=== PATIENT | female | born 1930 | race Hispanic/Latino ===

== ENCOUNTER 2017-01-17 18:34 | Inpatient (IN) | payer MEDICARE, BC ==
[2017-01-17 18:34] VITALS: BMI 18.0
[2017-01-17] MEDS ORDERED: Sodium Chloride 0.9% 500 ML IV ONE (19:51)
[2017-01-17] MEDS ORDERED: Sodium Chloride 0.9% 1,000 ML ONE (19:59)
[2017-01-17 20:05] LABS: BASO % 0.4 % (0.0-2.0); EOS % 0.3 % (0.0-4.0); HEMATOCRIT 43.1 % (34.0-47.0); LYMPH # 1.3 K/uL (1.0-4.3); LYMPH % 16.2 % (20.0-40.0); MEAN CORPUSCULAR HEMOGLOBIN 29.2 pg (27.0-31.0); MEAN CORPUSCULAR HGB CONC 33.1 g/dL (33.0-37.0); MEAN PLATELET VOLUME 7.4 fL (7.2-11.7); MONO # 0.9 K/uL (0.0-0.8); MONO % 11.8 % (0.0-10.0); NRBC % 0.1 % (0.0-2.0); RED CELL DISTRIBUTION WIDTH 16.4 % (11.5-14.5); WHITE BLOOD COUNT 7.9 K/uL (4.8-10.8)
[2017-01-17 20:20] LABS: CHLORIDE 84 mmol/L (98-107); POTASSIUM 3.5 mmol/L (3.6-5.2); SODIUM 124 mmol/L (132-148)
[2017-01-17 20:22] LABS: BILIRUBIN,TOTAL 0.8 mg/dL (0.2-1.3); CARBON DIOXIDE 25 mmol/L (22-30); GFR AFRICAN-AMERICAN > 60
[2017-01-17 20:23] LABS: ALB/GLOB RATIO 1.3 (1.0-2.1); ALKALINE PHOSPHATASE 71 U/L (38-126); ALT/SGPT 20 U/L (9-52); AST/SGOT 32 U/L (14-36); BLOOD UREA NITROGEN 20 mg/dL (7-17); CALCIUM 8.9 mg/dl (8.6-10.4); GLUCOSE,RANDOM 81 mg/dL (65-105); TOTAL PROTEIN 6.9 g/dL (6.3-8.3)
[2017-01-17] MEDS ORDERED: Azithromycin 500 MG in Sodium Chloride 0.9% 250 ML IV STA (21:56)
[2017-01-17] MEDS ORDERED: cefTRIAXone IV 1 gm in Dextros 50 ML IV ONE (21:56)
[2017-01-17] MEDS ORDERED: cefTRIAXone IV 1 gm in Dextros 50 ML IVPB ONE (22:06)
[2017-01-17] MEDS ORDERED: Iodixanol 320 MG/ML 100 ML BOTTLE IV ONE (22:06)
[2017-01-17] MEDS ORDERED: Sodium Chloride 0.9% 1,000 ML IV ONE (22:12)
[2017-01-17] MEDS ORDERED: Azithromycin 500mg/250ML NS 500 MG/250 ML BAG IVPB ONE (22:57)
--- NOTE | 2017-01-17 23:04 | CT ---
EXAM: CT Abdomen and Pelvis With Intravenous Contrast CLINICAL HISTORY: 86 years old, female; Pain; Abdominal pain; Localized; Lower; Additional info: Lower abd, (ap as a child) TECHNIQUE: Axial computed tomography images of the abdomen and pelvis with intravenous contrast. This CT exam was performed using one or more of the following dose reduction techniques: automated exposure control, adjustment of the mA and/or kV according to patient size, and/or use of iterative reconstruction technique. Coronal and sagittal reformatted images were created and reviewed. CONTRAST: 100 mL of [id number] administered intravenously. COMPARISON: CR - HIP [place] W/WO PELVIS 3-4 VIEWS 10/21/2015 1:59:54 AM FINDINGS: Lower thorax: There is minimal bibasilar atelectasis. Visualized thoracic aorta is extensively tortuous without aneurysm. There is coronary artery calcification. The visualized heart does not appear enlarged. ABDOMEN: Liver: There is a diffuse decrease in hepatic parenchymal density, consistent with fatty infiltration. There are no focal liver lesions present. Gallbladder and bile ducts: There are probable small gallstones present. No ductal dilation. Pancreas: The pancreas is somewhat atrophic. The pancreatic duct is visible however remains within top normal limits of size. Spleen: The spleen is diminutive. Adrenals: The adrenal glands are normal. Kidneys and ureters: There is no evidence of hydronephrosis. Stomach and bowel: Stomach is decompressed. There is no evidence of intestinal obstruction. No mucosal thickening. Appendix: No findings to suggest acute appendicitis. PELVIS: Bladder: Bladder is decompressed. Reproductive: The uterus is atrophic or absent. ABDOMEN and PELVIS: Intraperitoneal space: There is no evidence of free intraperitoneal fluid. There is no free intraperitoneal air. Bones/joints: There is an intramedullary areli and dynamic screw combination within the visualized right proximal femur. There is a left hip prosthesis which appears in near-anatomic position. There is severe diffuse osteopenia present. Multilevel severe compression deformities are present, age indeterminate. There are post kyphoplasty changes in L1, L2 and L3. No dislocation. Soft tissues: Unremarkable. Vasculature: There is calcification of the aortic root. Abdominal aorta is extensively tortuous and demonstrates moderate to severe atherosclerosis and mild distal ectasia without stella aneurysm. An IVC filter is present infrarenally. Lymph nodes: Unremarkable. No enlarged lymph nodes. Other findings: Subcentimeter hypodensity is present in the right midpole, too small to adequately characterize. There is mild anasarca. IMPRESSION: 1. No definite acute findings. 2. Additional incidental and/or chronic findings as described.
--- NOTE | 2017-01-17 23:10 | C.PDOC ---
History Of Present Illness A 86 y/o female present to the ER c/o lower abdominal pain 3 days. Pt notes association of poor appetite, poor fluid intake, and poor bowel movements. Pt notes taking laxative to void bowel with no sign improvement to pain. Pt denies fever, chills, nausea, vomiting, or any other complaints. Time Seen by Provider: 01/17/17 19:25 Chief Complaint (Nursing): Abdominal Pain History Per: Patient History/Exam Limitations: no limitations Onset/Duration Of Symptoms: Days Current Symptoms Are (Timing): Still Present Severity: Mild Location Of Pain/Discomfort: RLQ, LLQ Associated Symptoms: denies: Nausea, Vomiting Recent travel outside of the [place]: No Additional History Per: Patient Past Medical History Reviewed: Historical Data, Nursing Documentation, Vital Signs Vital Signs: Last Vital Signs Temp 97.6 F 01/17/17 18:48 Pulse 79 01/17/17 23:28 Resp 20 01/17/17 23:28 BP 121/89 01/17/17 23:28 Pulse Ox 95 01/18/17 00:13 - Medical History PMH: Anemia, Arthritis, Back Problems, Depression, Fractures (hip, spine), HTN, Hypercholesterolemia, Osteoporosis, TIA Surgical History: Appendectomy, Tonsillectomy - [facility] Procedures ENDOSC POLYPECTOMY OF LG INTEST (11/10/97) ESOPHAGOGASTRODUODENOSCOPY [EGD] W/CLOSED BIOPSY (11/10/97) INJECT/INFUSE NEC (08/19/06) NEBULIZER THERAPY (06/19/04) OPEN REDUC-INT FIX FEMUR (03/19/13) PACKED CELL TRANSFUSION (03/19/13) Family History: States: Unknown Family Hx - Social History Hx Tobacco Use: No Hx Alcohol Use: No Hx Substance Use: No - Immunization History Hx Tetanus Toxoid Vaccination: Yes Hx Influenza Vaccination: Yes Hx Pneumococcal Vaccination: Yes Review Of Systems Except As Marked, All Systems Reviewed And Found Negative. Constitutional: Negative for: Fever, Chills Gastrointestinal: Positive for: Abdominal Pain (Lower abdominal pain). Negative for: Nausea, Vomiting Physical Exam - Physical Exam Appears: Non-toxic, No Acute Distress Skin: Warm, Dry, Pale Head: Other (bitemporal wasting) Eye(s): bilateral: Normal Inspection, EOMI Cardiovascular: Rhythm Regular, No Murmur Respiratory: Normal Breath Sounds, No Rales, No Rhonchi, No Wheezing Gastrointestinal/Abdominal: Soft, Tenderness (Mild suprapubic tenderness), No Guarding, No Rebound, Other (Thin abdomen) Neurological/Psych: Oriented x3, Normal Speech, Normal Cognition ED Course And Treatment - Laboratory Results Result Diagrams: 01/17/17 19:59 01/17/17 19:59 Lab Interpretation: Abnormal (lower sodium and chloride, bun/creat preserved) ECG: Interpreted By Me ECG Rhythm: Sinus Rhythm ECG Interpretation: Normal (81) Rate From EC O2 Sat by Pulse Oximetry: 95 (RA) Pulse Ox Interpretation: Normal - Radiology CXR: Interpreted by Me CXR Interpretation: Yes: No Acute Disease, Other (? atalectasis RLL, no pna) Reevaluation Time: 00:11 Reassessment Condition: Improved - Physician Consult Information Outcome Of Conversation: d/w Dr. Shah @ 0015: ok to med/Surg obs Medical Decision Making Medical Decision Making: Plans: -EKG -CXR -Pepcid -IV fluids -Toradol -UA -Zofran -Reassess and disposition Patient is resting comfortably, abdomen remains soft, and patient is tolerating PO. Patient feels comfortable going home. Patient will be discharged home. 0015: poor po intake for ? etioloy- normal CXR and UA and CT ABd/Pelvis. Benign exam. Admit for hydration and correction of electrolytes. Disposition Doctor Will See Patient In The: Hospital Counseled Patient/Family Regarding: Studies Performed, Diagnosis - Disposition Disposition: HOSPITALIZED Disposition Time: 00:13 Condition: GOOD - Clinical Impression Clinical Impression: Dehydration - Scribe Statement The provider has reviewed the documentation as recorded by the Violetibnaa simon All medical record entries made by the Violetibnaa were at my direction and personally dictated by me. I have reviewed the chart and agree that the record accurately reflects my personal performance of the history, physical exam, medical decision making, and the department course for this patient. I have also personally directed, reviewed, and agree with the discharge instructions and disposition.
[2017-01-17 23:33] LABS: RBC URINE 11 /hpf (0-3); URINE BILIRUBIN NEGATIVE (NEGATIVE); URINE BLOOD 1+ (NEGATIVE); URINE COLOR Yellow (YELLOW); URINE GLUCOSE (UA) NORMAL (Normal); URINE KETONE 2+ mg/dL (NEGATIVE); URINE LEUKOCYTE ESTERASE NEG Leu/uL (Negative); URINE PROTEIN NEGATIVE (NEGATIVE); URINE UROBILINOGEN NORMAL mg/dL (0.2-1.0); WBC URINE 1 /hpf (0-5)
[2017-01-18] MEDS ORDERED: MORPHINE SULFATE 15 MG PO PRN (00:45)
[2017-01-18] MEDS: Sodium Chloride 0.9% 1,000 ML IV SCH ×4 (03:00→23:41)
--- NOTE | 2017-01-18 09:08 | RAD ---
HISTORY: adm COMPARISON: Comparison is made to 08/20/2016 FINDINGS: LUNGS: No evidence of new infiltrate or consolidation in the lungs. Prominent lung markings. PLEURA: No significant pleural effusion identified, no pneumothorax apparent. CARDIOVASCULAR: Normal. OSSEOUS STRUCTURES: No significant abnormalities. VISUALIZED UPPER ABDOMEN: Normal. OTHER FINDINGS: None. IMPRESSION: No active disease. No significant interval change.
[2017-01-18] MEDS: Enoxaparin 30 mg Syringe SC SCH (10:35)
[2017-01-18] MEDS: Pantoprazole 20 mg EC Tab PO SCH (10:46)
[2017-01-18] MEDS: Tobramycin 0.3% OPHT SOLN OU SCH ×2 (10:46→17:44)
--- NOTE | 2017-01-18 18:00 | CP.PCM.HP ---
History of Present Illness - History of Present Illness History of Present Illness: chief complaint: Abdominal pain, diarrhea History present illness: 83-year-old female with history of hypertension, severe diffuse osteoporosis, osteoarthritis, history of multiple hip surgeries, multiple fractures in the past, vertebroplasty, hospitalized multiple times with a fall and fractures. Patient was not feeling well. She started having increasing abdominal pain, and profuse diarrhea noted, mostly watery in nature, no blood in the stools noted. Patient was not able to control the bowel movements, associated with the some discomfort. She did not have any nausea. No vomiting noted. Patient was not able to eat anything, and also not able to drink. Chest having diffuse abdominal discomfort, associated with diarrhea. No fever or chills noted. Increasing weakness and tiredness noted. Past medical history: Severe osteoporosis, osteoarthritis, vertebral compression fracture, multiple hip fractures, pelvic fractures, hypertension, hypercholesterolemia, failure to thrive Allergy: Allergic to codeine tramadol hydromorphone Surgical history: Vertebroplasty, hip replacement Personal history: Patient is a lifelong nonsmoker nonalcoholic Family history noncontributory Review of systems: Patient is currently having also some headache, neck pain, bilateral shoulder pain associate with the pain in the mid spine, and bilateral rib cage pain, also having pain in the bilateral hips. Patient is not able to move the legs, because of the pain. There is no fall or injury is noted Currently also complaining of pain in the mouth, gingival pain noted on the right side. Unable to swallow, swallowing causes increasing pain. Profuse diarrhea noted, uncontrolled bowel movements Patient is not able to eat well, significant weight loss noted, patient is having severely muscle mass loss noted On examination: HEENT PERRLA, neck supple, patient is a thin, fragile, as well as loss of muscle mass significantly noted, patient spine is visible obviously, with no muscle mass No thyromegaly was noted and no cervical adenopathy noted Chest bilateral good air entry, no wheezing or rales noted CVS regular heart sound, no murmur Abdomen soft and no organomegaly Extremities no pedal edema, no leg swelling, pedal pulses are good. 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 Most likely noninfectious diarrhea. We'll monitor the stool workup. IV fluid. Diet. Unlikely infection at this time. Failure to thrive. Diffuse atrophy and osteoporosis, osteoarthritis. 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 EGD with Biopsy; Polypectomy 11/1997 - GENITOURINARY/GYNECOLOGICAL Hx Incontinence: Yes - PSYCHIATRIC Hx Depression: Yes Hx Substance Use: No - SURGICAL HISTORY Hx Appendectomy: Yes Hx Tonsillectomy: Yes - ANESTHESIA Hx Anesthesia: Yes Hx Anesthesia Reactions: No Hx Malignant Hyperthermia: No Meds Allergies/Adverse Reactions: Allergies Allergy/AdvReac Type Severity Reaction Status Date / Time codeine Allergy Verified 08/20/16 13:32 hydromorphone HCl Allergy Verified 08/20/16 13:32 [From Dilaudid] tramadol Allergy Verified 08/20/16 13:32 Results - Vital Signs Recent Vital Signs: Last Vital Signs Temp 97.5 F L 01/18/17 08:58 Pulse 81 01/18/17 08:58 Resp 20 01/18/17 08:58 BP 150/78 01/18/17 08:58 Pulse Ox 95 01/18/17 13:17 - Labs Result Diagrams: 01/17/17 19:59 01/17/17 19:59
[2017-01-19 07:25] LABS: LYMPH # 1.6 K/uL (1.0-4.3); MEAN PLATELET VOLUME 7.1 fL (7.2-11.7); MONO # 0.9 K/uL (0.0-0.8); NRBC % 0.1 % (0.0-2.0); WHITE BLOOD COUNT 7.4 K/uL (4.8-10.8)
[2017-01-19 07:49] LABS: BASO % 0.4 % (0.0-2.0); EOS # 0.3 K/uL (0.0-0.7); EOS % 3.5 % (0.0-4.0); HEMATOCRIT 30.1 % (34.0-47.0); LYMPH % 21.5 % (20.0-40.0); MEAN CELL VOLUME 88.3 fL (81.0-99.0); MEAN CORPUSCULAR HEMOGLOBIN 29.2 pg (27.0-31.0); MONO % 12.3 % (0.0-10.0); RED CELL DISTRIBUTION WIDTH 16.6 % (11.5-14.5)
[2017-01-19 08:08] LABS: CHLORIDE 97 mmol/L (98-107); SODIUM 129 mmol/L (132-148)
[2017-01-19 08:09] LABS: POTASSIUM 3.1 mmol/L (3.6-5.2)
[2017-01-19 08:11] LABS: ALKALINE PHOSPHATASE 48 U/L (38-126); ALT/SGPT 22 U/L (9-52); AST/SGOT 24 U/L (14-36); BILIRUBIN,TOTAL 0.3 mg/dL (0.2-1.3); BLOOD UREA NITROGEN 17 mg/dL (7-17); CARBON DIOXIDE 24 mmol/L (22-30); GFR AFRICAN-AMERICAN > 60; GLUCOSE,RANDOM 84 mg/dL (65-105); TOTAL PROTEIN 4.5 g/dL (6.3-8.3)
[2017-01-19 08:12] LABS: CALCIUM 7.7 mg/dl (8.6-10.4)
[2017-01-19] MEDS: Enoxaparin 30 mg Syringe SC SCH (09:54)
[2017-01-19] MEDS: Tobramycin 0.3% OPHT SOLN OU SCH ×3 (09:56→18:11)
[2017-01-19] MEDS: Pantoprazole 20 mg EC Tab PO SCH (09:57)
[2017-01-19] MEDS: Mag&Al/Simet/Diphen/Lido 237 ML KIT PO SCH ×3 (09:57→19:16)
[2017-01-19] MEDS ORDERED: Potassium Chloride 20 mEq/15 ml LIQ UD PO ONE ×2 (10:00→10:15)
[2017-01-19] MEDS: Sodium Chloride 0.9% 1,000 ML IV SCH ×2 (10:10→20:39)
[2017-01-20] MEDS: Sodium Chloride 0.9% 1,000 ML IV SCH ×3 (07:15→17:48)
[2017-01-20] MEDS: Pantoprazole 20 mg EC Tab PO SCH (10:10)
[2017-01-20] MEDS: Enoxaparin 30 mg Syringe SC SCH (10:10)
[2017-01-20] MEDS: Tobramycin 0.3% OPHT SOLN OU SCH ×3 (10:10→17:45)
[2017-01-20] MEDS: Mag&Al/Simet/Diphen/Lido 237 ML KIT PO SCH ×3 (10:11→18:51)
--- NOTE | 2017-01-20 22:25 | CP.PCM.PN ---
Subjective - Date & Time of Evaluation Date of Evaluation: 01/20/17 Time of Evaluation: 22:25 - Subjective Subjective: Patient is still having some weakness, tiredness, and easy fatigability. Poor appetite noted. Receiving IV fluid. Low sodium noted Vital signs reviewed Chest good air entry regular heart sound nontender abdomen extended is no pedal edema Assessment the condition: 85-year-old female with history of multiple medical problems including osteoporosis, osteoarthritis, failure to thrive, hypertension, admitted to the hospital with the failure to thrive, poor intake, hyponatremia, dizziness, and weakness. Objective - Vital Signs/Intake and Output Vital Signs (last 24 hours): Temp Pulse Resp BP Pulse Ox 98 F 79 20 136/79 98 01/20/17 22:08 01/20/17 22:08 01/20/17 22:08 01/20/17 22:08 01/20/17 22:08 - Medications Medications: Current Medications Amlodipine Besylate (Norvasc) 10 mg PO DAILY [facility] Last Admin: 01/20/17 10:09 Dose: 10 mg Docusate Sodium (Colace) 100 mg PO DAILY [facility] Last Admin: 01/20/17 10:11 Dose: Not Given Enoxaparin Sodium (Lovenox) 30 mg SC DAILY [facility] Last Admin: 01/20/17 10:10 Dose: 30 mg Fentanyl (Duragesic) 1 patch TD Q72H [facility] Last Admin: 01/18/17 10:29 Dose: 1 patch Gabapentin (Neurontin) 100 mg PO TID [facility] Last Admin: 01/20/17 17:45 Dose: 100 mg Sodium Chloride (Sodium Chloride 0.9%) 1,000 mls @ 100 mls/hr IV .Q10H [facility] Last Admin: 01/20/17 17:48 Dose: 100 mls/hr Lorazepam (Ativan) 1 mg PO TID [facility] Last Admin: 01/20/17 18:51 Dose: Not Given Losartan Potassium (Cozaar) 100 mg PO DAILY [facility] Last Admin: 01/20/17 10:09 Dose: 100 mg Morphine Sulfate (Morphine) 2 mg IVP Q4 PRN PRN Reason: Pain, Mild (1-3) Last Admin: 01/20/17 22:05 Dose: 2 mg Pantoprazole Sodium (Protonix Ec Tab) 20 mg PO DAILY [facility] Last Admin: 01/20/17 10:10 Dose: 20 mg Saliva Substitute (First Magic Mouthwash) 10 ml PO TID [facility] Last Admin: 01/20/17 18:51 Dose: Not Given Sennosides (Senokot Tab) 8.6 mg PO DAILY [facility] Last Admin: 01/20/17 10:11 Dose: Not Given Tobramycin Sulfate (Tobrex 0.3% Oph Soln) 1 drop OU TID [facility] Last Admin: 01/20/17 17:45 Dose: 1 drop - Labs Labs: 01/19/17 07:12 01/19/17 07:12 PT 11.0 SECONDS (9.7-12.2) 01/17/17 19:59 INR 1.0 01/17/17 19:59 APTT 27 SECONDS (21-34) 01/17/17 19:59
--- NOTE | 2017-01-20 22:25 | CP.PCM.PN ---
Subjective - Date & Time of Evaluation Date of Evaluation: 01/19/17 Time of Evaluation: 22:24 - Subjective Subjective: Patient is still having some weakness, tiredness, and easy fatigability. Poor appetite noted. Receiving IV fluid. Low sodium noted Vital signs reviewed Chest good air entry regular heart sound nontender abdomen extended is no pedal edema Assessment the condition: 85-year-old female with history of multiple medical problems including osteoporosis, osteoarthritis, failure to thrive, hypertension, admitted to the hospital with the failure to thrive, poor intake, hyponatremia, dizziness, and weakness. Objective - Vital Signs/Intake and Output Vital Signs (last 24 hours): Temp Pulse Resp BP Pulse Ox 98 F 79 20 136/79 98 01/20/17 22:08 01/20/17 22:08 01/20/17 22:08 01/20/17 22:08 01/20/17 22:08 - Medications Medications: Current Medications Amlodipine Besylate (Norvasc) 10 mg PO DAILY [facility] Last Admin: 01/20/17 10:09 Dose: 10 mg Docusate Sodium (Colace) 100 mg PO DAILY [facility] Last Admin: 01/20/17 10:11 Dose: Not Given Enoxaparin Sodium (Lovenox) 30 mg SC DAILY [facility] Last Admin: 01/20/17 10:10 Dose: 30 mg Fentanyl (Duragesic) 1 patch TD Q72H [facility] Last Admin: 01/18/17 10:29 Dose: 1 patch Gabapentin (Neurontin) 100 mg PO TID [facility] Last Admin: 01/20/17 17:45 Dose: 100 mg Sodium Chloride (Sodium Chloride 0.9%) 1,000 mls @ 100 mls/hr IV .Q10H [facility] Last Admin: 01/20/17 17:48 Dose: 100 mls/hr Lorazepam (Ativan) 1 mg PO TID [facility] Last Admin: 01/20/17 18:51 Dose: Not Given Losartan Potassium (Cozaar) 100 mg PO DAILY [facility] Last Admin: 01/20/17 10:09 Dose: 100 mg Morphine Sulfate (Morphine) 2 mg IVP Q4 PRN PRN Reason: Pain, Mild (1-3) Last Admin: 01/20/17 22:05 Dose: 2 mg Pantoprazole Sodium (Protonix Ec Tab) 20 mg PO DAILY [facility] Last Admin: 01/20/17 10:10 Dose: 20 mg Saliva Substitute (First Magic Mouthwash) 10 ml PO TID [facility] Last Admin: 01/20/17 18:51 Dose: Not Given Sennosides (Senokot Tab) 8.6 mg PO DAILY [facility] Last Admin: 01/20/17 10:11 Dose: Not Given Tobramycin Sulfate (Tobrex 0.3% Oph Soln) 1 drop OU TID [facility] Last Admin: 01/20/17 17:45 Dose: 1 drop - Labs Labs: 01/19/17 07:12 01/19/17 07:12 PT 11.0 SECONDS (9.7-12.2) 01/17/17 19:59 INR 1.0 01/17/17 19:59 APTT 27 SECONDS (21-34) 01/17/17 19:59
[2017-01-21] MEDS: Sodium Chloride 0.9% 1,000 ML IV SCH ×2 (05:18→09:00)
[2017-01-21 07:51] LABS: BASO # 0.1 K/uL (0.0-0.2); EOS # 0.3 K/uL (0.0-0.7); EOS % 4.1 % (0.0-4.0); HEMATOCRIT 30.1 % (34.0-47.0); LYMPH # 1.8 K/uL (1.0-4.3); LYMPH % 23.5 % (20.0-40.0); MEAN CELL VOLUME 88.3 fL (81.0-99.0); MEAN CORPUSCULAR HEMOGLOBIN 29.8 pg (27.0-31.0); MEAN CORPUSCULAR HGB CONC 33.8 g/dL (33.0-37.0); MEAN PLATELET VOLUME 6.9 fL (7.2-11.7); MONO # 0.9 K/uL (0.0-0.8); MONO % 11.9 % (0.0-10.0); RED CELL DISTRIBUTION WIDTH 16.8 % (11.5-14.5); WHITE BLOOD COUNT 7.7 K/uL (4.8-10.8)
[2017-01-21 08:04] LABS: CHLORIDE 95 mmol/L (98-107); SODIUM 129 mmol/L (132-148)
[2017-01-21 08:05] LABS: POTASSIUM 3.7 mmol/L (3.6-5.2)
[2017-01-21 08:07] LABS: ALB/GLOB RATIO 1.1 (1.0-2.1); ALKALINE PHOSPHATASE 46 U/L (38-126); AST/SGOT 21 U/L (14-36); BILIRUBIN,TOTAL 0.3 mg/dL (0.2-1.3); BLOOD UREA NITROGEN 8 mg/dL (7-17); CARBON DIOXIDE 31 mmol/L (22-30); GFR AFRICAN-AMERICAN > 60; GLUCOSE,RANDOM 82 mg/dL (65-105); TOTAL PROTEIN 4.7 g/dL (6.3-8.3)
[2017-01-21 08:08] LABS: ALT/SGPT 20 U/L (9-52); CALCIUM 7.4 mg/dl (8.6-10.4)
[2017-01-21] MEDS: Mag&Al/Simet/Diphen/Lido 237 ML KIT PO SCH ×3 (08:30→18:01)
[2017-01-21] MEDS: Pantoprazole 20 mg EC Tab PO SCH (09:47)
[2017-01-21] MEDS: Enoxaparin 30 mg Syringe SC SCH (09:48)
[2017-01-21] MEDS: Tobramycin 0.3% OPHT SOLN OU SCH (18:01)
--- NOTE | 2017-01-21 20:21 | CP.PCM.PN ---
Subjective - Date & Time of Evaluation Date of Evaluation: 01/21/17 Time of Evaluation: 20:20 - Subjective Subjective: Patient condition remains unchanged. She still feeling weak and tired. Poor intake noted. Denies any nausea vomiting. Constipation present. On examination: Vital signs reviewed. Chest good air entry bilaterally regular heart sound. Nontender abdomen. Assessment and recommendation: 85-year-old female with history of multiple fractures, osteoporosis, failure to thrive, hypertension, admitted with weakness, tiredness, easy fatigability. Also having signs and symptoms of hyponatremia and dehydration and renal insufficiency. Currently improving, and I deeply, will monitor the sodium level again. Physical therapy may be needed, physical exercise advised. May need subacute rehabitation Objective - Vital Signs/Intake and Output Vital Signs (last 24 hours): Temp Pulse Resp BP Pulse Ox 981 F H 82 20 106/65 95 01/21/17 16:25 01/21/17 16:25 01/21/17 16:25 01/21/17 16:25 01/21/17 16:25 - Medications Medications: Current Medications Amlodipine Besylate (Norvasc) 10 mg PO DAILY [facility] Last Admin: 01/21/17 09:47 Dose: 10 mg Docusate Sodium (Colace) 100 mg PO DAILY [facility] Last Admin: 01/21/17 09:47 Dose: 100 mg Enoxaparin Sodium (Lovenox) 30 mg SC DAILY [facility] Last Admin: 01/21/17 09:48 Dose: 30 mg Fentanyl (Duragesic) 1 patch TD Q72H [facility] Last Admin: 01/21/17 09:47 Dose: 1 patch Gabapentin (Neurontin) 100 mg PO TID [facility] Last Admin: 01/21/17 18:01 Dose: 100 mg Lorazepam (Ativan) 1 mg PO TID [facility] Last Admin: 01/21/17 19:04 Dose: Not Given Losartan Potassium (Cozaar) 100 mg PO DAILY [facility] Last Admin: 01/21/17 09:47 Dose: 100 mg Morphine Sulfate (Morphine) 2 mg IVP Q4 PRN PRN Reason: Pain, Mild (1-3) Last Admin: 01/21/17 05:17 Dose: 2 mg Pantoprazole Sodium (Protonix Ec Tab) 20 mg PO DAILY [facility] Last Admin: 01/21/17 09:47 Dose: 20 mg Saliva Substitute (First Magic Mouthwash) 10 ml PO TID [facility] Last Admin: 01/21/17 18:01 Dose: 10 ml Sennosides (Senokot Tab) 8.6 mg PO DAILY [facility] Last Admin: 01/21/17 09:47 Dose: 8.6 mg Tobramycin Sulfate (Tobrex 0.3% Ophth Soln) 1 drop OU TID [facility] Last Admin: 01/21/17 18:01 Dose: 1 drop - Labs Labs: 01/21/17 07:32 01/21/17 07:32 PT 11.0 SECONDS (9.7-12.2) 01/17/17 19:59 INR 1.0 01/17/17 19:59 APTT 27 SECONDS (21-34) 01/17/17 19:59
[2017-01-22] MEDS ORDERED: Potassium Chloride 20 mEq ER Tab PO ONE (12:44)
--- NOTE | 2017-01-22 15:05 | CARD ---
APPROVED REPORT EKG Measurement Heart [id number] SC [id number] <Conclusion> Normal sinus rhythm Left axis deviation Inferior infarct, age undetermined Cannot rule out Anterior infarct, age undetermined Abnormal ECG
[2017-01-22 21:54] LABS: ALKALINE PHOSPHATASE 56 U/L (38-126); ALT/SGPT 22 U/L (9-52); AST/SGOT 25 U/L (14-36); BILIRUBIN,TOTAL 0.4 mg/dL (0.2-1.3); BLOOD UREA NITROGEN 8 mg/dL (7-17); CALCIUM 7.9 mg/dl (8.6-10.4); CARBON DIOXIDE 29 mmol/L (22-30); CHLORIDE 94 mmol/L (98-107); GFR AFRICAN-AMERICAN > 60; GLUCOSE,RANDOM 95 mg/dL (65-105); POTASSIUM 3.3 mmol/L (3.6-5.2); SODIUM 131 mmol/L (132-148); TOTAL PROTEIN 5.4 g/dL (6.3-8.3)
[2017-01-22 21:55] LABS: ALB/GLOB RATIO 1.2 (1.0-2.1)
[2017-01-23 08:55] LABS: CHLORIDE 92 mmol/L (98-107); POTASSIUM 3.8 mmol/L (3.6-5.2); SODIUM 126 mmol/L (132-148)
[2017-01-23 08:57] LABS: BILIRUBIN,TOTAL 0.3 mg/dL (0.2-1.3); CARBON DIOXIDE 30 mmol/L (22-30); GFR AFRICAN-AMERICAN > 60
[2017-01-23 08:58] LABS: ALB/GLOB RATIO 0.9 (1.0-2.1); ALKALINE PHOSPHATASE 56 U/L (38-126); ALT/SGPT 28 U/L (9-52); AST/SGOT 23 U/L (14-36); BLOOD UREA NITROGEN 7 mg/dL (7-17); GLUCOSE,RANDOM 82 mg/dL (65-105); TOTAL PROTEIN 5.2 g/dL (6.3-8.3)
[2017-01-23] MEDS: Mag&Al/Simet/Diphen/Lido 237 ML KIT PO SCH ×3 (09:55→17:20)
[2017-01-23] MEDS: Pantoprazole 20 mg EC Tab PO SCH (09:55)
[2017-01-23] MEDS: Tobramycin 0.3% OPHT SOLN OU SCH ×3 (09:57→17:20)
[2017-01-23] MEDS: Enoxaparin 30 mg Syringe SC SCH (10:36)
[2017-01-23] MEDS ORDERED: Albuterol-Ipratrop 3 mg / 0.5 (3 ml) UD INH STA (22:47)
--- NOTE | 2017-01-24 09:14 | CP.PCM.PN ---
Subjective - Date & Time of Evaluation Date of Evaluation: 01/23/17 Time of Evaluation: 09:14 - Subjective Subjective: Patient is complaining of some pain over the abdominal area, not having any bowel movements yet. Also complaining of lower back pain. Still poorly eating. No nausea vomiting. Objective - Vital Signs/Intake and Output Vital Signs (last 24 hours): Temp Pulse Resp BP Pulse Ox 97.0 F L 89 20 135/76 95 01/24/17 07:22 01/24/17 07:22 01/24/17 07:22 01/24/17 07:22 01/24/17 07:22 Chest good air entry bilaterally regular heart sound. Nontender abdomen edema negative Intake and Output: 01/24/17 01/24/17 06:59 18:59 Intake Total 150 Output Total 1125 Balance -975 - Medications Medications: Current Medications Amlodipine Besylate (Norvasc) 10 mg PO DAILY [facility] Last Admin: 01/23/17 09:56 Dose: 10 mg Docusate Sodium (Colace) 100 mg PO DAILY [facility] Last Admin: 01/23/17 09:55 Dose: 100 mg Enoxaparin Sodium (Lovenox) 30 mg SC DAILY [facility] Last Admin: 01/23/17 10:36 Dose: 30 mg Gabapentin (Neurontin) 100 mg PO TID [facility] Last Admin: 01/23/17 17:19 Dose: 100 mg Lactulose (Enulose) 6.67 gm PO HS [facility] Last Admin: 01/23/17 22:10 Dose: Not Given Lorazepam (Ativan) 1 mg PO TID [facility] Last Admin: 01/23/17 17:19 Dose: 1 mg Losartan Potassium (Cozaar) 100 mg PO DAILY [facility] Last Admin: 01/23/17 09:56 Dose: 100 mg Morphine Sulfate (Morphine) 2 mg IVP Q4 PRN PRN Reason: Pain, moderate (4-7) Last Admin: 01/23/17 22:56 Dose: 2 mg Pantoprazole Sodium (Protonix Ec Tab) 20 mg PO DAILY [facility] Last Admin: 01/23/17 09:55 Dose: 20 mg Saliva Substitute (First Magic Mouthwash) 10 ml PO TID [facility] Last Admin: 01/23/17 17:20 Dose: 10 ml Sennosides (Senokot Tab) 8.6 mg PO DAILY [facility] Last Admin: 01/23/17 09:56 Dose: 8.6 mg [facility] OU [facility] Last Admin: 01/23/17 17:20 Dose: 1 drop - Labs Labs: 01/21/17 07:32 01/23/17 08:09 PT 11.0 SECONDS (9.7-12.2) 01/17/17 19:59 INR 1.0 01/17/17 19:59 APTT 27 SECONDS (21-34) 01/17/17 19:59 Assessment and Plan (1) Dehydration Assessment & Plan: Patient with dehydration. Hyponatremia. Not improving, it. Physical therapy needed. Poor intake. Constipation. Respiratory Supervisor weakness. Overall prognosis is guarded. Patient may need physical therapy. Status: Acute (2) Chronic pain Status: Acute (3) Closed fracture of neck of left humerus Status: Acute (4) Inability to ambulate due to hip Status: Acute
--- NOTE | 2017-01-24 09:17 | CP.PCM.PN ---
Subjective - Date & Time of Evaluation Date of Evaluation: 01/24/17 Time of Evaluation: 09:16 - Subjective Subjective: This morning patient is complaining of some constipation. Still did not have any BM. Enema was given 2 days ago no improvement. No chest pain, but complaining of some cough, with congestion. No nausea. Poorly intake noted. Complaining of lower back pain, which is not improving with pain medication. Objective - Vital Signs/Intake and Output Vital Signs (last 24 hours): Temp Pulse Resp BP Pulse Ox 97.0 F L 89 20 135/76 95 01/24/17 07:22 01/24/17 07:22 01/24/17 07:22 01/24/17 07:22 01/24/17 07:22 Intake and Output: 01/24/17 01/24/17 06:59 18:59 Intake Total 150 Output Total 1125 Balance -975 Chest good air entry, minimal wheezing noted, regular heart sound, nontender abdomen, no pedal edema. - Medications Medications: Current Medications Amlodipine Besylate (Norvasc) 10 mg PO DAILY [facility] Last Admin: 01/23/17 09:56 Dose: 10 mg Docusate Sodium (Colace) 100 mg PO DAILY [facility] Last Admin: 01/23/17 09:55 Dose: 100 mg Enoxaparin Sodium (Lovenox) 30 mg SC DAILY [facility] Last Admin: 01/23/17 10:36 Dose: 30 mg Gabapentin (Neurontin) 100 mg PO TID [facility] Last Admin: 01/23/17 17:19 Dose: 100 mg Lactulose (Enulose) 6.67 gm PO HS [facility] Last Admin: 01/23/17 22:10 Dose: Not Given Lorazepam (Ativan) 1 mg PO TID [facility] Last Admin: 01/23/17 17:19 Dose: 1 mg Losartan Potassium (Cozaar) 100 mg PO DAILY [facility] Last Admin: 01/23/17 09:56 Dose: 100 mg Morphine Sulfate (Morphine) 2 mg IVP Q4 PRN PRN Reason: Pain, moderate (4-7) Last Admin: 01/23/17 22:56 Dose: 2 mg Pantoprazole Sodium (Protonix Ec Tab) 20 mg PO DAILY [facility] Last Admin: 01/23/17 09:55 Dose: 20 mg Saliva Substitute (First Magic Mouthwash) 10 ml PO TID [facility] Last Admin: 01/23/17 17:20 Dose: 10 ml Sennosides (Senokot Tab) 8.6 mg PO DAILY [facility] Last Admin: 01/23/17 09:56 Dose: 8.6 mg Sodium Chloride (Sodium Chloride Tab) 1 gm PO DAILY [facility] Tobramycin Sulfate (Tobrex 0.3% Ophth Soln) 1 drop OU TID [facility] Last Admin: 01/23/17 17:20 Dose: 1 drop - Labs Labs: 01/21/17 07:32 01/23/17 08:09 PT 11.0 SECONDS (9.7-12.2) 01/17/17 19:59 INR 1.0 01/17/17 19:59 APTT 27 SECONDS (21-34) 01/17/17 19:59 Assessment and Plan (1) Dehydration Assessment & Plan: Patient has a dehydration. Low sodium level still noted. Will add salt tablets today. Monitor the blood pressure as well as sodium level. Tapwater enema. Pain control. Out of bed to chair. Physical therapy Status: Acute (2) Chronic pain Status: Acute (3) Closed fracture of neck of left humerus Status: Acute (4) Inability to ambulate due to hip Status: Acute
[2017-01-24] MEDS: Tobramycin 0.3% OPHT SOLN OU SCH ×3 (09:58→18:22)
[2017-01-24] MEDS: Enoxaparin 30 mg Syringe SC SCH (09:58)
[2017-01-24] MEDS: Mag&Al/Simet/Diphen/Lido 237 ML KIT PO SCH ×3 (10:00→18:21)
[2017-01-24] MEDS: Pantoprazole 20 mg EC Tab PO SCH (10:05)
--- NOTE | 2017-01-24 11:05 | RAD ---
Abdomen three views History: Constipation. Comparison: None available. Findings: Prominent gaseous distention of small bowel loops throughout the abdomen. Fecal retention in the colon. Right basilar atelectasis. Diffuse increased interstitial lung markings. Right hilar prominence. Curvilinear opacity within the right hilar region may represent artifact. IVC filter in place. Prior kyphoplasty. Loss of height/ compression deformities of multiple thoracic and lumbar vertebral bodies. Diffuse osteopenia. Prominent vascular calcifications. Postsurgical changes in the proximal femurs. Impression: Diffuse gaseous distention of bowel loops throughout the abdomen. Fecal retention the colon. Additional findings as above.
--- NOTE | 2017-01-24 11:16 | RAD ---
HISTORY: CHF COMPARISON: 01/17/2017 FINDINGS: LUNGS: Biapical pleural thickening with upper lobe granulomatous changes. Moderate venous congestion. Scattered nodularity in the lateral aspect of the right midlung zone. Consolidative changes the right infrahilar lung zone. Consolidative changes at the left lung base. PLEURA: As above. CARDIOVASCULAR: Calcification at the aortic knob. Mild cardiomegaly. OSSEOUS STRUCTURES: Degenerative changes in the spine and shoulders. Deformity of the left proximal humerus. VISUALIZED UPPER ABDOMEN: Normal. OTHER FINDINGS: None. IMPRESSION: Biapical pleural thickening with upper lobe granulomatous changes. Moderate venous congestion. Scattered nodularity in the lateral aspect of the right midlung zone. Consolidative changes the right infrahilar lung zone. Consolidative changes at the left lung base.
[2017-01-24] MEDS: Albuterol-Ipratrop 3 mg / 0.5 (3 ml) UD INH SCH (20:16)
[2017-01-25] MEDS: Albuterol-Ipratrop 3 mg / 0.5 (3 ml) UD INH SCH ×3 (00:31→16:14)
--- NOTE | 2017-01-25 07:52 | CP.PCM.PN ---
Subjective - Date & Time of Evaluation Date of Evaluation: 01/25/17 Time of Evaluation: 07:51 - Subjective Subjective: Patient is still continues to have abdominal pain. Bowel movements are very less. Complaining of nausea. Chest congestion also noted. Poor intake noted. Denies any other major active symptoms Objective - Vital Signs/Intake and Output Vital Signs (last 24 hours): Temp Pulse Resp BP Pulse Ox 97.2 F L 84 20 95/64 L 96 01/25/17 00:05 01/25/17 00:05 01/25/17 00:05 01/25/17 00:05 01/25/17 00:05 Intake and Output: 01/25/17 01/25/17 06:59 18:59 Intake Total 750 Output Total 300 Balance 450 - Medications Medications: Current Medications Albuterol/Ipratropium (Duoneb 3 Mg/0.5 Mg (3 Ml) Ud) 3 ml INH RQ8 [facility] Last Admin: 01/25/17 07:46 Dose: Not Given Amlodipine Besylate (Norvasc) 10 mg PO DAILY [facility] Last Admin: 01/24/17 09:59 Dose: 10 mg Docusate Sodium (Colace) 100 mg PO DAILY [facility] Last Admin: 01/24/17 09:59 Dose: 100 mg Enoxaparin Sodium (Lovenox) 30 mg SC DAILY [facility] Last Admin: 01/24/17 09:58 Dose: 30 mg Gabapentin (Neurontin) 100 mg PO TID [facility] Last Admin: 01/24/17 18:24 Dose: 100 mg Lactulose (Enulose) 6.67 gm PO HS [facility] Last Admin: 01/24/17 22:08 Dose: 6.67 gm Lorazepam (Ativan) 1 mg PO TID [facility] Last Admin: 01/24/17 18:21 Dose: 1 mg Losartan Potassium (Cozaar) 100 mg PO DAILY [facility] Last Admin: 01/24/17 09:59 Dose: 100 mg Morphine Sulfate (Morphine) 2 mg IVP Q4 PRN PRN Reason: Pain, moderate (4-7) Last Admin: 01/24/17 22:09 Dose: 2 mg Pantoprazole Sodium (Protonix Ec Tab) 20 mg PO DAILY [facility] Last Admin: 01/24/17 10:05 Dose: 20 mg Saliva Substitute (First Magic Mouthwash) 10 ml PO TID [facility] Last Admin: 01/24/17 18:21 Dose: 10 ml Sennosides (Senokot Tab) 8.6 mg PO DAILY [facility] Last Admin: 01/24/17 09:59 Dose: 8.6 mg Sodium Chloride (Sodium Chloride Tab) 1 gm PO DAILY [facility] Last Admin: 01/24/17 12:00 Dose: 1 gm Tobramycin Sulfate (Tobrex 0.3% Ophth Soln) 1 drop OU TID [facility] Last Admin: 01/24/17 18:22 Dose: 1 drop Vital signs reviewed No neck vein distention noted Chest good air entry bilaterally, no wheezing or rales noted CVS regular heart sound, no murmur noted Abdomen soft, nontender. 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 Chest congestion likely bronchitis. Hyponatremia. Osteoporosis. Osteoarthritis Multiple rib fractures, vertebral fracture, hip fracture. Admitted with dehydration. We will discuss with the family regarding further management Status: Acute (2) Chronic pain Status: Acute (3) Closed fracture of neck of left humerus Status: Acute (4) Inability to ambulate due to hip Status: Acute
[2017-01-25 08:35] LABS: BASO % 0.7 % (0.0-2.0); EOS # 0.2 K/uL (0.0-0.7); EOS % 3.7 % (0.0-4.0); LYMPH # 1.2 K/uL (1.0-4.3); LYMPH % 19.3 % (20.0-40.0); MEAN CELL VOLUME 88.4 fL (81.0-99.0); MEAN CORPUSCULAR HEMOGLOBIN 29.5 pg (27.0-31.0); MEAN CORPUSCULAR HGB CONC 33.3 g/dL (33.0-37.0); MEAN PLATELET VOLUME 6.6 fL (7.2-11.7); MONO # 0.9 K/uL (0.0-0.8); MONO % 14.8 % (0.0-10.0); RED CELL DISTRIBUTION WIDTH 16.9 % (11.5-14.5); WHITE BLOOD COUNT 6.3 K/uL (4.8-10.8)
[2017-01-25 08:44] LABS: CHLORIDE 93 mmol/L (98-107); POTASSIUM 4.1 mmol/L (3.6-5.2); SODIUM 128 mmol/L (132-148)
[2017-01-25 08:46] LABS: BILIRUBIN,TOTAL 0.3 mg/dL (0.2-1.3); GFR AFRICAN-AMERICAN > 60
[2017-01-25 08:47] LABS: ALKALINE PHOSPHATASE 51 U/L (38-126); ALT/SGPT 24 U/L (9-52); AST/SGOT 19 U/L (14-36); BLOOD UREA NITROGEN 16 mg/dL (7-17); CARBON DIOXIDE 29 mmol/L (22-30); GLUCOSE,RANDOM 93 mg/dL (65-105); TOTAL PROTEIN 5.1 g/dL (6.3-8.3)
[2017-01-25 08:48] LABS: CALCIUM 7.7 mg/dl (8.6-10.4)
[2017-01-25] MEDS: Tobramycin 0.3% OPHT SOLN OU SCH ×3 (09:09→17:28)
[2017-01-25] MEDS: Enoxaparin 30 mg Syringe SC SCH (09:10)
[2017-01-25] MEDS: Pantoprazole 20 mg EC Tab PO SCH (09:11)
[2017-01-25] MEDS: Mag&Al/Simet/Diphen/Lido 237 ML KIT PO SCH ×3 (09:14→17:28)
[2017-01-26] MEDS: Albuterol-Ipratrop 3 mg / 0.5 (3 ml) UD INH SCH ×3 (00:40→16:10)
[2017-01-26] MEDS: Pantoprazole 20 mg EC Tab PO SCH (09:24)
[2017-01-26] MEDS: Mag&Al/Simet/Diphen/Lido 237 ML KIT PO SCH ×3 (09:27→19:52)
[2017-01-26] MEDS: Tobramycin 0.3% OPHT SOLN OU SCH ×3 (09:27→17:23)
[2017-01-26] MEDS ORDERED: MethylPREDNISolone 40 mg Vial IVP STA (18:51)
--- NOTE | 2017-01-26 18:51 | CP.PCM.PN ---
Subjective - Date & Time of Evaluation Date of Evaluation: 01/26/17 Time of Evaluation: 18:50 - Subjective Subjective: Patient is still complaining of cough, some wheezing noted, and chest tightness noted. Complaining of poor intake. Complaining of general is to body pain. I spoke to the patient regarding discharge plan. She does not want to go to the rehabilitation. Objective - Vital Signs/Intake and Output Vital Signs (last 24 hours): Temp Pulse Resp BP Pulse Ox 97.7 F 90 20 103/66 95 01/26/17 15:00 01/26/17 15:00 01/26/17 15:00 01/26/17 15:00 01/26/17 15:00 Intake and Output: 01/26/17 01/26/17 06:59 18:59 Intake Total 200 Output Total 400 Balance -400 200 Vital signs reviewed No neck vein distention noted chest bilateral wheez CVS regular heart sound, no murmur noted Abdomen soft, nontender. 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 3, no functional neurological deficit - Medications Medications: Current Medications Albuterol/Ipratropium (Duoneb 3 Mg/0.5 Mg (3 Ml) Ud) 3 ml INH RQ8 [facility] Last Admin: 01/26/17 16:10 Dose: 3 ml Amlodipine Besylate (Norvasc) 10 mg PO DAILY [facility] Last Admin: 01/26/17 09:25 Dose: 10 mg Docusate Sodium (Colace) 100 mg PO DAILY [facility] Last Admin: 01/26/17 09:24 Dose: 100 mg Gabapentin (Neurontin) 100 mg PO TID [facility] Last Admin: 01/26/17 17:21 Dose: 100 mg Lactulose (Enulose) 6.67 gm PO HS [facility] Last Admin: 01/25/17 22:02 Dose: 6.67 gm Lorazepam (Ativan) 1 mg PO TID [facility] Last Admin: 01/26/17 17:26 Dose: 1 mg Losartan Potassium (Cozaar) 100 mg PO DAILY [facility] Last Admin: 01/26/17 09:25 Dose: 100 mg Morphine Sulfate (Morphine) 2 mg IVP Q4 PRN PRN Reason: Pain, moderate (4-7) Last Admin: 01/26/17 02:46 Dose: 2 mg Pantoprazole Sodium (Protonix Ec Tab) 20 mg PO DAILY [facility] Last Admin: 01/26/17 09:24 Dose: 20 mg Saliva Substitute (First Magic Mouthwash) 10 ml PO TID [facility] Last Admin: 01/26/17 13:07 Dose: 10 ml Sennosides (Senokot Tab) 8.6 mg PO DAILY [facility] Last Admin: 01/26/17 09:24 Dose: 8.6 mg Sodium Chloride (Sodium Chloride Tab) 1 gm PO BID [facility] Last Admin: 01/26/17 17:22 Dose: 1 gm Tobramycin Sulfate (Tobrex 0.3% Oph Soln) 1 drop OU TID [facility] Last Admin: 01/26/17 17:23 Dose: 1 drop - Labs Labs: 01/25/17 08:30 01/25/17 08:30 PT 11.0 SECONDS (9.7-12.2) 01/17/17 19:59 INR 1.0 01/17/17 19:59 APTT 27 SECONDS (21-34) 01/17/17 19:59 Assessment and Plan (1) Dehydration Assessment & Plan: Still having evidence of low sodium level. Bilateral wheezing noted, possible bronchitis. We will add broncho-dilator, corticosteroids. We'll speak to the patient's son regarding the discharge plan. Patient can discharge home once the patient is stable. Status: Acute (2) Chronic pain Status: Acute (3) Closed fracture of neck of left humerus Status: Acute (4) Inability to ambulate due to hip Status: Acute
[2017-01-27] MEDS: Albuterol-Ipratrop 3 mg / 0.5 (3 ml) UD INH SCH ×3 (00:43→15:46)
[2017-01-27 08:56] LABS: CHLORIDE 94 mmol/L (98-107); SODIUM 130 mmol/L (132-148)
[2017-01-27 08:57] LABS: POTASSIUM 4.2 mmol/L (3.6-5.2)
[2017-01-27 08:59] LABS: CARBON DIOXIDE 28 mmol/L (22-30); GFR AFRICAN-AMERICAN > 60
[2017-01-27 09:00] LABS: BLOOD UREA NITROGEN 16 mg/dL (7-17); CALCIUM 8.3 mg/dl (8.6-10.4); GLUCOSE,RANDOM 111 mg/dL (65-105)
[2017-01-27] MEDS: Tobramycin 0.3% OPHT SOLN OU SCH ×3 (09:24→18:52)
[2017-01-27] MEDS: Pantoprazole 20 mg EC Tab PO SCH (09:26)
[2017-01-27] MEDS: Mag&Al/Simet/Diphen/Lido 237 ML KIT PO SCH ×3 (10:55→18:55)
--- NOTE | 2017-01-27 18:46 | CP.PCM.PN ---
Subjective - Date & Time of Evaluation Date of Evaluation: 01/27/17 Time of Evaluation: 18:45 - Subjective Subjective: Patient still having episodes of cough. Slightly better. She denies any chest pain. No nausea vomiting noted. Patient. I advised the patient to have the physical therapy. I also advised the patient for the rehabitation. But patient is refusing Objective - Vital Signs/Intake and Output Vital Signs (last 24 hours): Temp Pulse Resp BP Pulse Ox 97.5 F L 82 20 103/68 94 L 01/27/17 15:05 01/27/17 16:15 01/27/17 15:05 01/27/17 15:05 01/27/17 15:05 On examination: HEENT PERRLA, neck supple No thyromegaly was noted and no cervical adenopathy noted Chest bilateral good air entry, no wheezing or rales noted CVS regular heart sound, no murmur Abdomen soft and no organomegaly Extremities no pedal edema, no leg swelling, pedal pulses are good. 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 no functional neurological deficit Intake and Output: 01/27/17 01/27/17 06:59 18:59 Intake Total 1000 500 Output Total 1100 550 Balance -100 -50 - Medications Medications: Current Medications Albuterol/Ipratropium (Duoneb 3 Mg/0.5 Mg (3 Ml) Ud) 3 ml INH RQ8 [facility] Last Admin: 01/27/17 15:46 Dose: 3 ml Amlodipine Besylate (Norvasc) 10 mg PO DAILY [facility] Last Admin: 01/27/17 09:26 Dose: 10 mg Azithromycin (Zithromax) 500 mg PO DAILY [facility] Last Admin: 01/27/17 11:50 Dose: 500 mg Docusate Sodium (Colace) 100 mg PO DAILY [facility] Last Admin: 01/27/17 09:26 Dose: 100 mg Gabapentin (Neurontin) 100 mg PO TID [facility] Last Admin: 01/27/17 13:17 Dose: 100 mg Lactulose (Enulose) 6.67 gm PO HS [facility] Last Admin: 01/26/17 22:02 Dose: 6.67 gm Lorazepam (Ativan) 1 mg PO TID [facility] Last Admin: 01/27/17 13:53 Dose: 1 mg Losartan Potassium (Cozaar) 100 mg PO DAILY [facility] Last Admin: 01/27/17 09:26 Dose: 100 mg Morphine Sulfate (Morphine) 2 mg IVP Q4 PRN PRN Reason: Pain, moderate (4-7) Last Admin: 01/27/17 13:09 Dose: 2 mg Pantoprazole Sodium (Protonix Ec Tab) 20 mg PO DAILY [facility] Last Admin: 01/27/17 09:26 Dose: 20 mg Saliva Substitute (First Magic Mouthwash) 10 ml PO TID [facility] Last Admin: 01/27/17 13:19 Dose: 10 ml Sennosides (Senokot Tab) 8.6 mg PO DAILY [facility] Last Admin: 01/27/17 09:26 Dose: 8.6 mg Sodium Chloride (Sodium Chloride Tab) 1 gm PO BID [facility] Last Admin: 01/27/17 09:25 Dose: 1 gm Tobramycin Sulfate (Tobrex 0.3% Oph Soln) 1 drop OU TID [facility] Last Admin: 01/27/17 13:17 Dose: 1 drop - Labs Labs: 01/25/17 08:30 01/27/17 08:14 PT 11.0 SECONDS (9.7-12.2) 01/17/17 19:59 INR 1.0 01/17/17 19:59 APTT 27 SECONDS (21-34) 01/17/17 19:59 Assessment and Plan (1) Dehydration Assessment & Plan: Patient with dehydration. Hyponatremia. Currently improving. Bronchitis. Continue the current treatment. Patient will discharge home tomorrow off I spoke to the patient's family. Patient denying to have intervention such as subacute rehabilitation physical therapy. Status: Acute (2) Chronic pain Status: Acute (3) Closed fracture of neck of left humerus Status: Acute (4) Inability to ambulate due to hip Status: Acute
[2017-01-28] MEDS: Albuterol-Ipratrop 3 mg / 0.5 (3 ml) UD INH SCH ×3 (00:32→15:25)
--- NOTE | 2017-01-28 08:13 | CP.PCM.PN ---
Subjective - Date & Time of Evaluation Date of Evaluation: 01/28/17 Time of Evaluation: 08:11 - Subjective Subjective: Patient's overall condition remained same. Weakness and cough noted. No chest pain. Edema negative Objective - Vital Signs/Intake and Output Vital Signs (last 24 hours): Temp Pulse Resp BP Pulse Ox 98.4 F 80 20 121/69 98 01/28/17 07:36 01/28/17 07:36 01/28/17 07:36 01/28/17 07:36 01/28/17 07:36 On examination: HEENT PERRLA, neck supple No thyromegaly was noted and no cervical adenopathy noted Chest bilateral good air entry, no wheezing or rales noted CVS regular heart sound, no murmur Abdomen soft and no organomegaly Extremities no pedal edema, no leg swelling, pedal pulses are good. 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 x3 no functional neurological deficit Intake and Output: 01/28/17 01/28/17 06:59 18:59 Intake Total 520 Output Total 1000 Balance -480 - Medications Medications: Current Medications Albuterol/Ipratropium (Duoneb 3 Mg/0.5 Mg (3 Ml) Ud) 3 ml INH RQ8 [facility] Last Admin: 01/28/17 08:00 Dose: 3 ml Amlodipine Besylate (Norvasc) 10 mg PO DAILY [facility] Last Admin: 01/27/17 09:26 Dose: 10 mg Azithromycin (Zithromax) 500 mg PO DAILY [facility] Last Admin: 01/27/17 11:50 Dose: 500 mg Docusate Sodium (Colace) 100 mg PO DAILY [facility] Last Admin: 01/27/17 09:26 Dose: 100 mg Gabapentin (Neurontin) 100 mg PO TID [facility] Last Admin: 01/27/17 18:51 Dose: 100 mg Lactulose (Enulose) 6.67 gm PO HS [facility] Last Admin: 01/27/17 21:18 Dose: 6.67 gm Lorazepam (Ativan) 1 mg PO TID [facility] Last Admin: 01/27/17 18:51 Dose: 1 mg Losartan Potassium (Cozaar) 100 mg PO DAILY [facility] Last Admin: 01/27/17 09:26 Dose: 100 mg Morphine Sulfate (Morphine) 2 mg IVP Q4 PRN PRN Reason: Pain, moderate (4-7) Last Admin: 01/27/17 21:26 Dose: 2 mg Pantoprazole Sodium (Protonix Ec Tab) 20 mg PO DAILY [facility] Last Admin: 01/27/17 09:26 Dose: 20 mg Saliva Substitute (First Magic Mouthwash) 10 ml PO TID [facility] Last Admin: 01/27/17 18:55 Dose: 10 ml Sennosides (Senokot Tab) 8.6 mg PO DAILY [facility] Last Admin: 01/27/17 09:26 Dose: 8.6 mg Sodium Chloride (Sodium Chloride Tab) 1 gm PO BID [facility] Last Admin: 01/27/17 18:52 Dose: 1 gm Tobramycin Sulfate (Tobrex 0.3% Oph Soln) 1 drop OU TID [facility] Last Admin: 01/27/17 18:52 Dose: 1 drop - Labs Labs: 01/25/17 08:30 01/27/17 08:14 PT 11.0 SECONDS (9.7-12.2) 01/17/17 19:59 INR 1.0 01/17/17 19:59 APTT 27 SECONDS (21-34) 01/17/17 19:59 Assessment and Plan (1) Dehydration Assessment & Plan: patient with dehydration. Hyponatremia. Osteoporosis. Osteoarthritis. multiple vertebral fracture, hip fractureHypertension. Chronic headache. Chronic pain. Failure to thrive. Overall prognosis is poor. Patient is currently stable at this time. Will possibly discharge home today Status: Acute (2) Chronic pain Status: Acute (3) Closed fracture of neck of left humerus Status: Acute (4) Inability to ambulate due to hip Status: Acute
[2017-01-28] MEDS: Pantoprazole 20 mg EC Tab PO SCH (09:49)
[2017-01-28] MEDS: Tobramycin 0.3% OPHT SOLN OU SCH ×3 (09:49→18:07)
[2017-01-28] MEDS: Mag&Al/Simet/Diphen/Lido 237 ML KIT PO SCH ×3 (09:50→18:06)
[2017-01-29 01:14] VITALS: RESP 20
[2017-01-29] MEDS: Albuterol-Ipratrop 3 mg / 0.5 (3 ml) UD INH SCH ×2 (01:41→07:33)
[2017-01-29] MEDS: Tobramycin 0.3% OPHT SOLN OU SCH ×3 (11:01→17:37)
[2017-01-29] MEDS: Mag&Al/Simet/Diphen/Lido 237 ML KIT PO SCH ×3 (11:01→17:39)
[2017-01-29] MEDS: Pantoprazole 20 mg EC Tab PO SCH (11:01)
[2017-01-29 17:04] VITALS: BP 100/61; PULSE 92; TEMP 97.6; O2SAT 96
--- NOTE | 2017-01-30 06:40 | CP.PCM.DIS ---
Provider - Provider Date of Admission: 01/18/17 01:48 Attending physician: Anika Goyal MD Time Spent in preparation of Discharge (in minutes): 45 Diagnosis - Discharge Diagnosis (1) Dehydration Status: Acute (2) Chronic pain Status: Acute (3) Closed fracture of neck of left humerus Status: Acute (4) Inability to ambulate due to hip Status: Acute Hospital Course - Lab Results Lab Results: Most Recent Lab Values WBC 6.3 K/uL (4.8-10.8) 01/25/17 08:30 RBC 3.50 Mil/uL (3.80-5.20) L 01/25/17 08:30 Hgb 10.3 g/dL (11.0-16.0) L 01/25/17 08:30 Hct 31.0 % (34.0-47.0) L 01/25/17 08:30 MCV 88.4 fL (81.0-99.0) 01/25/17 08:30 MCH 29.5 pg (27.0-31.0) 01/25/17 08:30 MCHC 33.3 g/dL (33.0-37.0) 01/25/17 08:30 RDW 16.9 % (11.5-14.5) H 01/25/17 08:30 Plt Count 439 K/uL (130-400) H 01/25/17 08:30 MPV 6.6 fL (7.2-11.7) L 01/25/17 08:30 Neut % (Auto) 61.5 % (50.0-75.0) 01/25/17 08:30 Lymph % (Auto) 19.3 % (20.0-40.0) L 01/25/17 08:30 [place] % (Auto) 14.8 % (0.0-10.0) H 01/25/17 08:30 Eos % (Auto) 3.7 % (0.0-4.0) 01/25/17 08:30 Baso % (Auto) 0.7 % (0.0-2.0) 01/25/17 08:30 Neut # 3.9 K/uL (1.8-7.0) 01/25/17 08:30 Lymph # 1.2 K/uL (1.0-4.3) 01/25/17 08:30 [place] # 0.9 K/uL (0.0-0.8) H 01/25/17 08:30 Eos # 0.2 K/uL (0.0-0.7) 01/25/17 08:30 Baso # 0.0 K/uL (0.0-0.2) 01/25/17 08:30 PT 11.0 SECONDS (9.7-12.2) 01/17/17 19:59 INR 1.0 01/17/17 19:59 APTT 27 SECONDS (21-34) 01/17/17 19:59 Sodium 130 mmol/L (132-148) L 01/27/17 08:14 Potassium 4.2 mmol/L (3.6-5.2) 01/27/17 08:14 Chloride 94 mmol/L (98-107) L 01/27/17 08:14 Carbon Dioxide 28 mmol/L (22-30) 01/27/17 08:14 Anion Gap 12 (10-20) 01/27/17 08:14 BUN 16 mg/dL (7-17) 01/27/17 08:14 Creatinine 0.4 MG/DL (0.7-1.2) L 01/27/17 08:14 Est GFR ( Amer) > 60 01/27/17 08:14 Est GFR (Non-Af Amer) > 60 01/27/17 08:14 POC Glucose (mg/dL) 131 mg/dL (65-110) H 01/24/17 21:38 Random Glucose 111 mg/dL (65-105) H 01/27/17 08:14 Lactic Acid 0.7 mmol/L (0.7-2.1) 01/17/17 20:14 Calcium 8.3 mg/dl (8.6-10.4) L 01/27/17 08:14 Total Bilirubin 0.3 mg/dL (0.2-1.3) 01/25/17 08:30 AST 19 U/L (14-36) 01/25/17 08:30 ALT 24 U/L (9-52) 01/25/17 08:30 Alkaline Phosphatase 51 U/L (38-126) 01/25/17 08:30 Troponin I < 0.0120 ng/mL (0.00-0.120) 01/17/17 19:59 Total Protein 5.1 g/dL (6.3-8.3) L 01/25/17 08:30 Albumin 2.6 g/dL (3.5-5.0) L 01/25/17 08:30 Globulin 2.5 gm/dL (2.2-3.9) 01/25/17 08:30 Albumin/Globulin Ratio 1.0 (1.0-2.1) 01/25/17 08:30 Lipase 120 U/L (23-300) 01/17/17 19:59 Urine Color Yellow (YELLOW) 01/17/17 23:26 Urine Clarity Clear (Clear) 01/17/17 23:26 Urine pH 6.0 (5.0-8.0) 01/17/17 23:26 Ur Specific [place] 1.034 (1.003-1.030) H 01/17/17 23:26 Urine Protein Negative mg/dL (NEGATIVE) 01/17/17 23:26 Urine Glucose (UA) Normal mg/dL (Normal) 01/17/17 23:26 Urine Ketones 2+ mg/dL (NEGATIVE) H 01/17/17 23:26 Urine Blood 1+ (NEGATIVE) H 01/17/17 23:26 Urine Nitrate Negative (NEGATIVE) 01/17/17 23:26 Urine Bilirubin Negative (NEGATIVE) 01/17/17 23:26 Urine Urobilinogen Normal mg/dL (0.2-1.0) 01/17/17 23:26 Ur Leukocyte Esterase Neg Brandee/uL (Negative) 01/17/17 23:26 Urine WBC (Auto) 1 /hpf (0-5) 01/17/17 23:26 Urine RBC (Auto) 11 /hpf (0-3) H 01/17/17 23:26 Ur Squamous Epith Cells 10 /hpf (0-5) H 01/17/17 23:26 - Hospital Course Hospital Course: 83-year-old female with history of hypertension, severe diffuse osteoporosis, osteoarthritis, history of multiple hip surgeries, multiple fractures in the past, vertebroplasty, hospitalized multiple times with a fall and fractures. Patient was not feeling well. She started having increasing abdominal pain, and profuse diarrhea noted, mostly watery in nature, no blood in the stools noted. Patient was not able to control the bowel movements, associated with the some discomfort. She did not have any nausea. No vomiting noted. Patient was not able to eat anything, and also not able to drink. Chest having diffuse abdominal discomfort, associated with diarrhea. No fever or chills noted. Increasing weakness and tiredness noted. Past medical history: Severe osteoporosis, osteoarthritis, vertebral compression fracture, multiple hip fractures, pelvic fractures, hypertension, hypercholesterolemia, failure to thrive Allergy: Allergic to codeine tramadol hydromorphone Surgical history: Vertebroplasty, hip replacement Personal history: Patient is a lifelong nonsmoker nonalcoholic Family history noncontributory Review of systems: Patient is currently having also some headache, neck pain, bilateral shoulder pain associate with the pain in the mid spine, and bilateral rib cage pain, also having pain in the bilateral hips. Patient is not able to move the legs, because of the pain. There is no fall or injury is noted Currently also complaining of pain in the mouth, gingival pain noted on the right side. Unable to swallow, swallowing causes increasing pain. Profuse diarrhea noted, uncontrolled bowel movements Patient is not able to eat well, significant weight loss noted, patient is having severely muscle mass loss noted On examination: HEENT PERRLA, neck supple, patient is a thin, fragile, as well as loss of muscle mass significantly noted, patient spine is visible obviously, with no muscle mass No thyromegaly was noted and no cervical adenopathy noted Chest bilateral good air entry, no wheezing or rales noted CVS regular heart sound, no murmur Abdomen soft and no organomegaly Extremities no pedal edema, no leg swelling, pedal pulses are good. 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 Patient was brought into the emergency room. With the pain over the pelvic region. In the emergency room. CAT scan was done, did not reveal any acute pathology. Patient was hospitalized. Spoke to the patient in details. Patient will need a rehabitation and, patient is agreeing to have the rehabilitation now Course in the hospital. Patient was hospitalized. Given intravenous IV fluid, also she started having some cough and bronchitis symptoms. Patient was started on Zithromax. Bronchodilators. Patient was doing well. Patient initially was given offered to go to the subacute rehabilitation, but patient was refusing to have the rehabilitation. Patient was sent home with a home health aid. But patient was refusing to have home health aid and visiting nurse and the physical therapy. But patient will go home today, and she will follow up as an outpatient Discharge Plan - Follow Up Plan Condition: GOOD Disposition: HOME/ ROUTINE Instructions: Dehydration (DC) Referrals: Anika Goyal MD [Staff Provider] -
== END 2017-01-29 21:50 | disposition home or self-care (01) | DRG 641 ==
LOC: C.ER 18:34 → C.9E 01-18 01:48 → UNDOADMOB 01-18 01:48 → C.6T 01-18 02:24 → C.3T 01-26 15:25
PROVIDERS: ADMIT Internal Medicine; ATTEND Internal Medicine
DX: E87.1 Hypo-osmolality and hyponatremia (principal); E86.0 Dehydration; M48.50XA Collapsed vertebra, not elsewhere classified, site unspecified, initial encounter for fracture; E78.00 Pure hypercholesterolemia, unspecified; I10 Essential (primary) hypertension; M19.90 Unspecified osteoarthritis, unspecified site; M81.0 Age-related osteoporosis without current pathological fracture; R62.7 Adult failure to thrive; Z96.649 Presence of unspecified artificial hip joint; G89.29 Other chronic pain; K59.00 Constipation, unspecified; N28.9 Disorder of kidney and ureter, unspecified; J40 Bronchitis, not specified as acute or chronic; K52.9 Noninfective gastroenteritis and colitis, unspecified; Z86.73 Personal history of transient ischemic attack (TIA), and cerebral infarction without residual deficits

== ENCOUNTER 2017-01-29 23:59 | Inpatient (IN) | payer MEDICARE, BC ==
[2017-01-29 23:59] VITALS: BMI 18.0
--- NOTE | 2017-01-30 00:21 | C.PDOC ---
History Of Present Illness Patient presents to the ER after falling while trying to go to the bathroom. Patient was just released from the hospital yesterday, was admitted for chronic pain and failure to thrive. Patient has a closed fracture of the neck of the left humerus which hinders mobility along with some chest congestion. Patient remember the fall and denies any LOC, nausea or vomiting. - HPI Time Seen by Provider: 01/30/17 00:21 Chief Complaint (Nursing): Trauma History Per: Patient History/Exam Limitations: no limitations Onset/Duration Of Symptoms: Hrs Severity: None Pain Scale Rating Of: 0 Recent travel outside of the [place]: No - Fall Fall:Prior To Injury: Lost Balance Past Medical History Reviewed: Historical Data, Nursing Documentation, Vital Signs Vital Signs: Last Vital Signs Temp 98 F 01/30/17 00:06 Pulse 90 01/30/17 02:45 Resp 18 01/30/17 02:45 BP 141/95 H 01/30/17 02:45 Pulse Ox 94 L 01/30/17 02:47 - Medical History PMH: Anemia, Arthritis, Back Problems, Depression, Fractures (hip, spine), HTN, Hypercholesterolemia, Osteoporosis, TIA Surgical History: Appendectomy, Tonsillectomy - [facility] Procedures ENDOSC POLYPECTOMY OF LG INTEST (11/10/97) ESOPHAGOGASTRODUODENOSCOPY [EGD] W/CLOSED BIOPSY (11/10/97) INJECT/INFUSE NEC (08/19/06) NEBULIZER THERAPY (06/19/04) OPEN REDUC-INT FIX FEMUR (03/19/13) PACKED CELL TRANSFUSION (03/19/13) Family History: States: No Known Family Hx - Social History Hx Tobacco Use: No Hx Alcohol Use: No Hx Substance Use: No - Immunization History Hx Tetanus Toxoid Vaccination: Yes Hx Influenza Vaccination: Yes Hx Pneumococcal Vaccination: Yes Review Of Systems Constitutional: Negative for: Fever, Chills Eyes: Negative for: Redness ENT: Negative for: Throat Pain Cardiovascular: Positive for: Other (Chest congestion). Negative for: Chest Pain Respiratory: Negative for: Shortness of Breath Gastrointestinal: Negative for: Nausea, Vomiting Genitourinary: Positive for: Frequency Musculoskeletal: Positive for: Back Pain, Other (Chronic pain) Skin: Negative for: Rash, Lesions, Jaundice Neurological: Negative for: Dizziness Psych: Negative for: Anxiety Physical Exam - Physical Exam Appears: Non-toxic Skin: Warm, Dry Head: Normacephalic Oral Mucosa: Moist Neck: Supple Chest: Symmetrical, No Tenderness Cardiovascular: Rhythm Regular, No Murmur Respiratory: No Rales, Rhonchi (Scattered), No Wheezing Gastrointestinal/Abdominal: Soft, No Tenderness, No Distention Back: Normal Inspection, CVA Tenderness Extremity: Tenderness (Left hip), Other (Left leg externally rotated) Extremity: Bilateral: Painful To Bear Weight Neurological/Psych: Oriented x3, Normal Speech Gait: Unable To Assess ED Course And Treatment - Laboratory Results Result Diagrams: 01/30/17 01:09 01/30/17 01:41 ECG: Interpreted By Me, Viewed By Me O2 Sat by Pulse Oximetry: 94 (Room air) Pulse Ox Interpretation: Normal - Radiology CXR: Interpreted by Me, Viewed By Me CXR Interpretation: Yes: Other (unchanged from 01/24/17). No: Infiltrates, Fracture, Pnemothorax - CT Scan/US CT pelvis w/o contrast Other Rad Studies (CT/US): Read By Radiologist, Radiology Report Reviewed CT/US Interpretation: IMPRESSION: 1. No fracture. 2. If pain persists, suggest MRI to exclude occult fracture/internal derangement. 3. Incidental/non- acute findings are described above. CT of lumbar spine w/o contrast Other Rad Studies (CT/US): Read By Radiologist, Radiology Report Reviewed CT/US Interpretation: IMPRESSION: 1. Lumbar/sacral fractures. 2. Incidental/ non-acute findings are described above. Progress Note: Blood work, urinalysis, CT of lumbar spine w/o contrast and CT of pelvis w/o contrast ordered. Disposition Discussed With : Anika Goyal Comment: accepted the pt on his service and took over the care at 3:31 AM Doctor Will See Patient In The: Hospital Counseled Patient/Family Regarding: Studies Performed, Diagnosis - Disposition Disposition: HOSPITALIZED Disposition Time: 00:21 Condition: FAIR Instructions: Weakness (ED) - POA Present On Arrival: Falls Or Trauma - Clinical Impression Clinical Impression: Chronic pain, Generalized weakness, UTI (urinary tract infection), Hip pain - Scribe Statement The provider has reviewed the documentation as recorded by the Scribe Kain Mcclain All medical record entries made by the Scribe were at my direction and personally dictated by me. I have reviewed the chart and agree that the record accurately reflects my personal performance of the history, physical exam, medical decision making, and the department course for this patient. I have also personally directed, reviewed, and agree with the discharge instructions and disposition. Decision To Admit - Pt Status Changed To: Hospital Disposition Of: Inpatient - Admit Certification Admit to Inpatient:: After my assessment, the patient will require hospitalization for at least two midnights. This is because of the severity of symptoms shown, intensity of services needed, and/or the medical risk in this patient being treated as an outpatient. - InPatient: Physician Admission Certification: I certify that this patient requires 2 or more midnights of care for the following reason:: After my assessment, the patient will require hospitalization for at least two midnights. This is because of the severity of symptoms shown, intensity of services needed, and/or the medical risk in this patient being treated as an outpatient. - . Bed Request Type: Regular Admitting Physician: Anika Goyal Patient Diagnosis: Chronic pain, Generalized weakness, UTI (urinary tract infection), Hip pain
[2017-01-30 01:16] LABS: BASO # 0.1 K/uL (0.0-0.2); BASO % 1.3 % (0.0-2.0); EOS # 0.1 K/uL (0.0-0.7); EOS % 2.1 % (0.0-4.0); HEMATOCRIT 35.8 % (34.0-47.0); LYMPH # 0.9 K/uL (1.0-4.3); MEAN CELL VOLUME 88.9 fL (81.0-99.0); MEAN CORPUSCULAR HEMOGLOBIN 29.2 pg (27.0-31.0); MEAN CORPUSCULAR HGB CONC 32.9 g/dL (33.0-37.0); MEAN PLATELET VOLUME 6.7 fL (7.2-11.7); MONO # 0.9 K/uL (0.0-0.8); MONO % 13.6 % (0.0-10.0); NRBC % 0.1 % (0.0-2.0); RED CELL DISTRIBUTION WIDTH 16.8 % (11.5-14.5); WHITE BLOOD COUNT 6.8 K/uL (4.8-10.8)
[2017-01-30 01:17] LABS: RBC URINE 3 /hpf (0-3); URINE BACTERIA MANY (<OCC); URINE BILIRUBIN NEGATIVE (NEGATIVE); URINE BLOOD NEGATIVE (NEGATIVE); URINE COLOR Yellow (YELLOW); URINE GLUCOSE (UA) NORMAL (Normal); URINE KETONE NEGATIVE (NEGATIVE); URINE LEUKOCYTE ESTERASE 2+ Leu/uL (Negative); URINE PROTEIN NEGATIVE (NEGATIVE); URINE UROBILINOGEN NORMAL mg/dL (0.2-1.0); WBC URINE 32 /hpf (0-5)
[2017-01-30] MEDS ORDERED: cefTRIAXone IV 1 gm in Dextros 50 ML IVPB ONE ×2 (01:30→01:35)
--- NOTE | 2017-01-30 02:05 | CT ---
EXAM: CT Pelvis Without Intravenous Contrast CLINICAL HISTORY: 86 years old, female; Pain; Pelvic pain; Prior surgery; Patient HX: X-ray 08-20-16; Additional info: Fall, HX of left hip FX TECHNIQUE: Axial computed tomography images of the pelvis without intravenous contrast. This CT exam was performed using one or more of the following dose reduction techniques: automated exposure control, adjustment of the mA and/or kV according to patient size, and/or use of iterative reconstruction technique. Coronal and sagittal reformatted images were created and reviewed. COMPARISON: CT - ABD PELVIS IV CONTRAST ONLY 01/17/2017 10:32:58 PM FINDINGS: Limitations: Osteopenia, limiting evaluation for fracture. Bones/joints: No acute displaced fracture. Mild deformity of LEFT pubic bone, stable. Gamma nail fixation of RIGHT femur. LEFT bipolar hip arthroplasty. No dislocation. Osteopenia. Soft tissues: [id number] stranding within subcutaneous tissues. Vasculature: Atherosclerotic disease of visualized arteries. IMPRESSION: 1. No fracture. 2. If pain persists, suggest MRI to exclude occult fracture/internal derangement. 3. Incidental/non-acute findings are described above.
--- NOTE | 2017-01-30 02:12 | CT ---
EXAM: CT Lumbar Spine Without Intravenous Contrast CLINICAL HISTORY: 86 years old, female; Pain; Lumbago; Prior surgery; Patient HX: 12-04-14; Additional info: Fall TECHNIQUE: Axial computed tomography images of the lumbar spine without intravenous contrast. This CT exam was performed using one or more of the following dose reduction techniques: automated exposure control, adjustment of the mA and/or kV according to patient size, and/or use of iterative reconstruction technique. Coronal and sagittal reformatted images were created and reviewed. COMPARISON: MR - SPINAL CANAL LUMBAR W/O CONT 12/04/2014 12:48:06 PM FINDINGS: Limitations: Osteopenia, limiting evaluation for fracture. Vertebrae: Moderate subacute compression fracture L4 vertebral body. Mild subacute compression fracture L5 vertebral body. Subacute fracture sacrum. Chronic compression fractures/vertebroplasties T12, L1, L2, L3 vertebral bodies. Chronic compression fractures T10, T11 vertebral bodies. Discs/spinal canal/neural foramina: No significant central canal stenosis. Neural foraminal narrowing within lower lumbar spine. Soft tissues: Unremarkable. Vasculature: IVC filter. Atherosclerotic disease of visualized arteries. 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 Lungs: Mild patchy peripheral airspace disease lower lobes, atelectasis vs pneumonia. IMPRESSION: 1. Lumbar/sacral fractures. 2. Incidental/non-acute findings are described above.
[2017-01-30 02:17] LABS: CHLORIDE 96 mmol/L (98-107); POTASSIUM 3.8 mmol/L (3.6-5.2); SODIUM 132 mmol/L (132-148)
[2017-01-30 02:19] LABS: ALKALINE PHOSPHATASE 62 U/L (38-126); AST/SGOT 23 U/L (14-36); BILIRUBIN,TOTAL 0.4 mg/dL (0.2-1.3); CARBON DIOXIDE 29 mmol/L (22-30); GFR AFRICAN-AMERICAN > 60; TOTAL PROTEIN 5.8 g/dL (6.3-8.3)
[2017-01-30 02:20] LABS: ALT/SGPT 30 U/L (9-52); BLOOD UREA NITROGEN 15 mg/dL (7-17); CALCIUM 8.7 mg/dl (8.6-10.4); GLUCOSE,RANDOM 101 mg/dL (65-105)
--- NOTE | 2017-01-30 06:43 | CP.PCM.HP ---
History of Present Illness - History of Present Illness History of Present Illness: chief complaint: Abdominal pain, diarrhea History present illness: 83-year-old female with history of hypertension, severe diffuse osteoporosis, osteoarthritis, history of multiple hip surgeries, multiple fractures in the past, vertebroplasty, hospitalized multiple times with a fall and fractures. Patient was not feeling well. She started having increasing abdominal pain, and profuse diarrhea noted, mostly watery in nature, no blood in the stools noted. Patient was not able to control the bowel movements, associated with the some discomfort. She did not have any nausea. No vomiting noted. Patient was not able to eat anything, and also not able to drink. Chest having diffuse abdominal discomfort, associated with diarrhea. No fever or chills noted. Increasing weakness and tiredness noted. Past medical history: Severe osteoporosis, osteoarthritis, vertebral compression fracture, multiple hip fractures, pelvic fractures, hypertension, hypercholesterolemia, failure to thrive Allergy: Allergic to codeine tramadol hydromorphone Surgical history: Vertebroplasty, hip replacement Personal history: Patient is a lifelong nonsmoker nonalcoholic Family history noncontributory Review of systems: Patient is currently having also some headache, neck pain, bilateral shoulder pain associate with the pain in the mid spine, and bilateral rib cage pain, also having pain in the bilateral hips. Patient is not able to move the legs, because of the pain. There is no fall or injury is noted Currently also complaining of pain in the mouth, gingival pain noted on the right side. Unable to swallow, swallowing causes increasing pain. Profuse diarrhea noted, uncontrolled bowel movements Patient is not able to eat well, significant weight loss noted, patient is having severely muscle mass loss noted On examination: HEENT PERRLA, neck supple, patient is a thin, fragile, as well as loss of muscle mass significantly noted, patient spine is visible obviously, with no muscle mass No thyromegaly was noted and no cervical adenopathy noted Chest bilateral good air entry, no wheezing or rales noted CVS regular heart sound, no murmur Abdomen soft and no organomegaly Extremities no pedal edema, no leg swelling, pedal pulses are good. 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 Patient was brought into the emergency room. With the pain over the pelvic region. In the emergency room. CAT scan was done, did not reveal any acute pathology. Patient was hospitalized. Spoke to the patient in details. Patient will need a rehabitation and, patient is agreeing to have the rehabilitation now Admitted with dehydration, and diarrhea. Most likely noninfectious diarrhea. We'll monitor the stool workup. IV fluid. Diet. Unlikely infection at this time. Failure to thrive. Diffuse atrophy and osteoporosis, osteoarthritis. 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 poor vision on the right eye - ENDOCRINE/METABOLIC Hx Endocrine Disorders: No - HEMATOLOGICAL/ONCOLOGICAL Hx Anemia: Yes - INTEGUMENTARY Hx Eczema: No - MUSCULOSKELETAL/RHEUMATOLOGICAL Hx Arthritis: Yes Hx Falls: Yes Hx Fractures: Yes (hip, spine) Hx Osteoporosis: Yes Hx Unsteady Gait: Yes - GASTROINTESTINAL Hx Gastrointestinal Disorders: Yes Hx Nausea: Yes Other/Comment: IRRITABLE BOWEL SYNDROME. EGD with Biopsy; Polypectomy 11/1997 - GENITOURINARY/GYNECOLOGICAL Hx Incontinence: Yes - PSYCHIATRIC Hx Depression: Yes Hx Substance Use: No - SURGICAL HISTORY Hx Appendectomy: Yes Hx Tonsillectomy: Yes - ANESTHESIA Hx Anesthesia: Yes Hx Anesthesia Reactions: No Hx Malignant Hyperthermia: No Meds Allergies/Adverse Reactions: Allergies Allergy/AdvReac Type Severity Reaction Status Date / Time codeine Allergy ITCHING Verified 01/30/17 00:13 hydromorphone HCl Allergy RASH Verified 01/30/17 00:13 [From Dilaudid] tramadol Allergy RASH Verified 01/30/17 00:13 Results - Vital Signs Recent Vital Signs: Last Vital Signs Temp 98.3 F 01/30/17 04:23 Pulse 91 H 01/30/17 04:23 Resp 18 01/30/17 04:23 BP 160/88 H 01/30/17 04:23 Pulse Ox 95 01/30/17 04:23 - Labs Result Diagrams: 01/30/17 01:09 01/30/17 01:41
--- NOTE | 2017-01-30 08:03 | RAD ---
PROCEDURE: CHEST RADIOGRAPH, 1 VIEW HISTORY: Shortness of breath COMPARISON: 01/24/2017 FINDINGS: LUNGS: Biapical pleural thickening with upper lobe granulomatous changes. Elevated right hemidiaphragm. Increased linear markings at both lung bases which may represent atelectasis and or infiltrate. Trace bilateral pleural effusions. Diffuse increased interstitial lung markings. Bilateral hilar prominence. Linear radiopaque density in the right hilar region may represent artifact. PLEURA: No pneumothorax or pleural fluid seen. CARDIOVASCULAR: Normal. OSSEOUS STRUCTURES: Degenerative changes in the spine and shoulders. Sclerosis in the left proximal humerus at the humeral neck. Prior kyphoplasty. VISUALIZED UPPER ABDOMEN: Normal. OTHER FINDINGS: None. IMPRESSION: Biapical pleural thickening with upper lobe granulomatous changes. Elevated right hemidiaphragm. Increased linear markings at both lung bases which may represent atelectasis and or infiltrate. Trace bilateral pleural effusions. Diffuse increased interstitial lung markings. Bilateral hilar prominence. Linear radiopaque density in the right hilar region may represent artifact.
[2017-01-30] MEDS ORDERED: Lidocaine 5% Patch TD SCH (10:00)
[2017-01-30] MEDS ORDERED: Tobramycin 0.3% OPHT SOLN OU SCH (10:00)
[2017-01-30] MEDS ORDERED: Pantoprazole 40 mg EC Tab PO SCH (10:00)
[2017-01-30 16:30] VITALS: BP 122/69; PULSE 89; TEMP 98.4; O2SAT 95
[2017-01-30 19:30] VITALS: RESP 20
--- NOTE | 2017-01-31 15:48 | CP.PCM.DIS ---
Provider - Provider Date of Admission: 01/30/17 03:34 Attending physician: Anika Goyal MD Time Spent in preparation of Discharge (in minutes): 45 Hospital Course - Lab Results Lab Results: Most Recent Lab Values WBC 6.8 K/uL (4.8-10.8) 01/30/17 01:09 RBC 4.03 Mil/uL (3.80-5.20) 01/30/17 01:09 Hgb 11.8 g/dL (11.0-16.0) 01/30/17 01:09 Hct 35.8 % (34.0-47.0) 01/30/17 01:09 MCV 88.9 fL (81.0-99.0) 01/30/17 01:09 MCH 29.2 pg (27.0-31.0) 01/30/17 01:09 MCHC 32.9 g/dL (33.0-37.0) L 01/30/17 01:09 RDW 16.8 % (11.5-14.5) H 01/30/17 01:09 Plt Count 536 K/uL (130-400) H 01/30/17 01:09 MPV 6.7 fL (7.2-11.7) L 01/30/17 01:09 Neut % (Auto) 70.0 % (50.0-75.0) 01/30/17 01:09 Lymph % (Auto) 13.0 % (20.0-40.0) L 01/30/17 01:09 [place] % (Auto) 13.6 % (0.0-10.0) H 01/30/17 01:09 Eos % (Auto) 2.1 % (0.0-4.0) 01/30/17 01:09 Baso % (Auto) 1.3 % (0.0-2.0) 01/30/17 01:09 Neut # 4.7 K/uL (1.8-7.0) 01/30/17 01:09 Lymph # 0.9 K/uL (1.0-4.3) L 01/30/17 01:09 [place] # 0.9 K/uL (0.0-0.8) H 01/30/17 01:09 Eos # 0.1 K/uL (0.0-0.7) 01/30/17 01:09 Baso # 0.1 K/uL (0.0-0.2) 01/30/17 01:09 Sodium 132 mmol/L (132-148) 01/30/17 01:41 Potassium 3.8 mmol/L (3.6-5.2) 01/30/17 01:41 Chloride 96 mmol/L (98-107) L 01/30/17 01:41 Carbon Dioxide 29 mmol/L (22-30) 01/30/17 01:41 Anion Gap 11 (10-20) 01/30/17 01:41 BUN 15 mg/dL (7-17) 01/30/17 01:41 Creatinine 0.3 MG/DL (0.7-1.2) L 01/30/17 01:41 Est GFR ( Amer) > 60 01/30/17 01:41 Est GFR (Non-Af Amer) > 60 01/30/17 01:41 Random Glucose 101 mg/dL (65-105) 01/30/17 01:41 Calcium 8.7 mg/dl (8.6-10.4) 01/30/17 01:41 Total Bilirubin 0.4 mg/dL (0.2-1.3) 01/30/17 01:41 AST 23 U/L (14-36) 01/30/17 01:41 ALT 30 U/L (9-52) 01/30/17 01:41 Alkaline Phosphatase 62 U/L (38-126) 01/30/17 01:41 Total Protein 5.8 g/dL (6.3-8.3) L 01/30/17 01:41 Albumin 3.0 g/dL (3.5-5.0) L 01/30/17 01:41 Globulin 2.9 gm/dL (2.2-3.9) 01/30/17 01:41 Albumin/Globulin Ratio 1.0 (1.0-2.1) 01/30/17 01:41 Urine Color Yellow (YELLOW) 01/30/17 01:09 Urine Clarity Hazy (Clear) 01/30/17 01:09 Urine pH 7.0 (5.0-8.0) 01/30/17 01:09 Ur Specific [place] 1.017 (1.003-1.030) 01/30/17 01:09 Urine Protein Negative mg/dL (NEGATIVE) 01/30/17 01:09 Urine Glucose (UA) Normal mg/dL (Normal) 01/30/17 01:09 Urine Ketones Negative mg/dL (NEGATIVE) 01/30/17 01:09 Urine Blood Negative (NEGATIVE) 01/30/17 01:09 Urine Nitrate Positive (NEGATIVE) H 01/30/17 01:09 Urine Bilirubin Negative (NEGATIVE) 01/30/17 01:09 Urine Urobilinogen Normal mg/dL (0.2-1.0) 01/30/17 01:09 Ur Leukocyte Esterase 2+ Brandee/uL (Negative) H 01/30/17 01:09 Urine WBC (Auto) 32 /hpf (0-5) H 01/30/17 01:09 Urine RBC (Auto) 3 /hpf (0-3) 01/30/17 01:09 Ur Squamous Epith Cells 4 /hpf (0-5) 01/30/17 01:09 Urine Bacteria Many (<OCC) H 01/30/17 01:09 - Hospital Course Hospital Course: 83-year-old female with history of hypertension, severe diffuse osteoporosis, osteoarthritis, history of multiple hip surgeries, multiple fractures in the past, vertebroplasty, hospitalized multiple times with a fall and fractures. Patient was not feeling well. She started having increasing abdominal pain, and profuse diarrhea noted, mostly watery in nature, no blood in the stools noted. Patient was not able to control the bowel movements, associated with the some discomfort. She did not have any nausea. No vomiting noted. Patient was not able to eat anything, and also not able to drink. Chest having diffuse abdominal discomfort, associated with diarrhea. No fever or chills noted. Increasing weakness and tiredness noted. Past medical history: Severe osteoporosis, osteoarthritis, vertebral compression fracture, multiple hip fractures, pelvic fractures, hypertension, hypercholesterolemia, failure to thrive Allergy: Allergic to codeine tramadol hydromorphone Surgical history: Vertebroplasty, hip replacement Personal history: Patient is a lifelong nonsmoker nonalcoholic Family history noncontributory Review of systems: Patient is currently having also some headache, neck pain, bilateral shoulder pain associate with the pain in the mid spine, and bilateral rib cage pain, also having pain in the bilateral hips. Patient is not able to move the legs, because of the pain. There is no fall or injury is noted Currently also complaining of pain in the mouth, gingival pain noted on the right side. Unable to swallow, swallowing causes increasing pain. Profuse diarrhea noted, uncontrolled bowel movements Patient is not able to eat well, significant weight loss noted, patient is having severely muscle mass loss noted On examination: HEENT PERRLA, neck supple, patient is a thin, fragile, as well as loss of muscle mass significantly noted, patient spine is visible obviously, with no muscle mass No thyromegaly was noted and no cervical adenopathy noted Chest bilateral good air entry, no wheezing or rales noted CVS regular heart sound, no murmur Abdomen soft and no organomegaly Extremities no pedal edema, no leg swelling, pedal pulses are good. 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 Patient was hospitalized. Given intravenous IV fluid, also she started having some cough and bronchitis symptoms. Patient was started on Zithromax. Bronchodilators. . Patient is agreeing to go to rehabilitation, she will be transferred to a subacute rehabilitation. Physical therapy advised. Will follow the patient Discharge Plan - Follow Up Plan Condition: FAIR Disposition: REHAB FACILITY/REHAB UNIT Instructions: Chronic Pain (DC), Fall Prevention for Older Adults (GEN), Fall Prevention (DC) Referrals: Anika Goyal MD [Staff Provider] -
== END 2017-01-30 19:35 | DRG 641 ==
LOC: C.ER 23:59 → C.9E 01-30 03:34 → C.3T 01-30 03:53 → C.9E 01-30 03:58 → C.6T 01-30 04:02
PROVIDERS: ADMIT Internal Medicine; ATTEND Internal Medicine
DX: R62.7 Adult failure to thrive (principal); M48.50XA Collapsed vertebra, not elsewhere classified, site unspecified, initial encounter for fracture; N39.0 Urinary tract infection, site not specified; E86.0 Dehydration; K52.9 Noninfective gastroenteritis and colitis, unspecified; M81.0 Age-related osteoporosis without current pathological fracture; M19.90 Unspecified osteoarthritis, unspecified site; I10 Essential (primary) hypertension; E78.00 Pure hypercholesterolemia, unspecified; Z96.649 Presence of unspecified artificial hip joint; Z86.73 Personal history of transient ischemic attack (TIA), and cerebral infarction without residual deficits

== ENCOUNTER 2017-08-25 17:57 | Inpatient (IN) | payer MEDICARE, BC ==
[2017-08-25 17:57] VITALS: BMI 18.0
[2017-08-25 20:27] LABS: BASO # 0.1 K/uL (0.0-0.2); BASO % 0.8 % (0.0-2.0); EOS % 0.6 % (0.0-4.0); HEMATOCRIT 36.9 % (34.0-47.0); LYMPH # 1.5 K/uL (1.0-4.3); LYMPH % 21.8 % (20.0-40.0); MEAN CELL VOLUME 78.8 fL (81.0-99.0); MEAN CORPUSCULAR HEMOGLOBIN 25.8 pg (27.0-31.0); MEAN CORPUSCULAR HGB CONC 32.7 g/dL (33.0-37.0); MEAN PLATELET VOLUME 7.5 fL (7.2-11.7); MONO # 0.6 K/uL (0.0-0.8); MONO % 9.1 % (0.0-10.0); NRBC % 0.1 % (0.0-2.0); RED CELL DISTRIBUTION WIDTH 18.5 % (11.5-14.5); WHITE BLOOD COUNT 7.1 K/uL (4.8-10.8)
[2017-08-25 20:42] LABS: RBC URINE 3 /hpf (0-3); TRANSITIONAL EPITHIAL 1 /hpf (0-3); URINE BACTERIA FEW (<OCC); URINE BILIRUBIN NEGATIVE (NEGATIVE); URINE BLOOD NEGATIVE (NEGATIVE); URINE COLOR Yellow (YELLOW); URINE GLUCOSE (UA) NORMAL (Normal); URINE KETONE TRACE mg/dL (NEGATIVE); URINE LEUKOCYTE ESTERASE 1+ Leu/uL (Negative); URINE PROTEIN NEGATIVE (NEGATIVE); URINE UROBILINOGEN NORMAL mg/dL (0.2-1.0); WBC URINE 12 /hpf (0-5)
[2017-08-25 20:44] LABS: ALB/GLOB RATIO 1.1 (1.0-2.1); ALKALINE PHOSPHATASE 61 U/L (38-126); ALT/SGPT 33 U/L (9-52); AST/SGOT 26 U/L (14-36); BILIRUBIN,TOTAL 0.4 mg/dL (0.2-1.3); BLOOD UREA NITROGEN 12 mg/dL (7-17); CALCIUM 8.5 mg/dl (8.6-10.4); CARBON DIOXIDE 26 mmol/L (22-30); CHLORIDE 95 mmol/L (98-107); GFR AFRICAN-AMERICAN > 60; GLUCOSE,RANDOM 94 mg/dL (65-105); MAGNESIUM 1.8 mg/dL (1.6-2.3); POTASSIUM 3.5 mmol/L (3.6-5.2); SODIUM 129 mmol/L (132-148); TOTAL PROTEIN 7.5 g/dL (6.3-8.3)
[2017-08-25 20:59] LABS: ABG ALLEN TEST POS; ARTERIAL BLOOD HGB O2 SAT 95.9 % (95.0-98.0); CARBOXYHEMOGLOBIN 2.2 % (0.5-1.5); DRAW SITE RR; HHB 0.6 % (0.0-5.0); METHEMOGLOBIN 1.3 % (0.0-3.0)
[2017-08-25 21:16] LABS: THYROID STIMULATING HORMONE 1.95 mIU/L (0.46-4.68)
--- NOTE | 2017-08-25 22:01 | C.PDOC ---
History Of Present Illness 86 year old female presents to the ER with a complaint of generalized weakness for the past few days, associated with SOB and left facial pain. Patient states she feels like she cannot catch her breath; denies cough, difficulty, urinating , fever, chills, nausea, vomiting, diarrhea, abdominal pain, or chest pain. Patient has a Hx of a ruptured intercranial aneurysm s/p craniotomy, severe osteoporosis, HTN, and 3rd nerve palsy. Patient has a surgical Hx of left partial hip replacement and right femur open reduction internal fixation. Patient is allergic to pain medication. Chief Complaint (Nursing): Weakness/Neurological Deficit History Per: Patient History/Exam Limitations: no limitations Onset/Duration Of Symptoms: Days Current Symptoms Are (Timing): Still Present Seizure Or Post-ictal Symptoms: None Fall Associated With With Symptoms: No Recent travel outside of the [place]: No - Symptoms Of CVA Associated Symptoms: denies: Impaired Speech, Seizure Activity, New Vision Deficit(Left), New Vision Deficit(Right), Decreased Ability To Walk, New Confusion Past Medical History Reviewed: Historical Data, Nursing Documentation, Vital Signs Vital Signs: Last Vital Signs Temp 98.5 F 08/25/17 18:17 Pulse 90 08/25/17 21:16 Resp 16 08/25/17 21:16 BP 212/130 H 08/25/17 21:16 Pulse Ox 97 08/25/17 22:15 - Medical History PMH: Anemia, Anxiety, Arthritis, Back Problems, Depression, Fractures (hip, spine), HTN, Hypercholesterolemia, Osteoporosis, TIA Surgical History: Appendectomy, Tonsillectomy - [facility] Procedures ENDOSC POLYPECTOMY OF LG INTEST (11/10/97) ESOPHAGOGASTRODUODENOSCOPY [EGD] W/CLOSED BIOPSY (11/10/97) INJECT/INFUSE NEC (08/19/06) NEBULIZER THERAPY (06/19/04) OPEN REDUC-INT FIX FEMUR (03/19/13) PACKED CELL TRANSFUSION (03/19/13) Family History: States: Unknown Family Hx - Social History Hx Tobacco Use: No Hx Alcohol Use: No Hx Substance Use: No - Immunization History Hx Tetanus Toxoid Vaccination: Yes Hx Influenza Vaccination: No Hx Pneumococcal Vaccination: Yes Review Of Systems Constitutional: Positive for: Weakness. Negative for: Fever, Chills Cardiovascular: Negative for: Chest Pain, Palpitations Respiratory: Positive for: Shortness of Breath Gastrointestinal: Negative for: Nausea, Vomiting, Abdominal Pain, Diarrhea Genitourinary: Negative for: Other (Difficulty urinating) Physical Exam - Physical Exam Appears: Non-toxic Skin: Normal Color, Warm, Dry Head: Atraumatic, Normacephalic Eye(s): bilateral: Normal Inspection Oral Mucosa: Moist Neck: Normal, Supple Chest: Symmetrical, No Tenderness Cardiovascular: Rhythm Regular Respiratory: Other (Coarse breath sounds to posterior estrada) Gastrointestinal/Abdominal: Soft, No Tenderness Neurological/Psych: Oriented x3, Normal Speech ED Course And Treatment - Laboratory Results Result Diagrams: 08/25/17 20:20 08/25/17 20:20 O2 Sat by Pulse Oximetry: 97 (room air) Pulse Ox Interpretation: Normal Medical Decision Making Medical Decision Making: Plan: * ABG * CT Head * EKG * BNP * CMP * Mag * TSH * Trop I * CBC * PT * PTT * CXR * Flu swab * UA * Rocephin Na low 129. Urine positive for UTI, positive nitrates, positive leukoesterase, and 12 white cells. Flu swab was negative. Discussed with Dr. Goyal who agrees to accept patient for admission for urosepsis. - Scribe Statement The provider has reviewed the documentation as recorded by the Scribe Kain Mcclain All medical record entries made by the Scribe were at my direction and personally dictated by me. I have reviewed the chart and agree that the record accurately reflects my personal performance of the history, physical exam, medical decision making, and the department course for this patient. I have also personally directed, reviewed, and agree with the discharge instructions and disposition.
--- NOTE | 2017-08-25 22:48 | CT ---
EXAM: CT Head Without Intravenous Contrast CLINICAL HISTORY: 86 years old, female; Condition or disease; Headache; Headache not specified TECHNIQUE: Axial computed tomography images of the head/brain without intravenous contrast. All CT scans at this facility use one or more dose reduction techniques, viz.: automated exposure control; ma/kV adjustment per patient size (including targeted exams where dose is matched to indication; i.e. head); or iterative reconstruction technique. COMPARISON: No relevant prior studies available. FINDINGS: Brain: Moderate atrophy. No intracranial hemorrhage. Dural thickening along right frontal convexity. No mass. Several scattered foci of decreased attenuation within periventricular/subcortical white matter. No definite edema. Ventricles: No hydrocephalus. Bones/joints: Craniotomy. No acute fracture. Soft tissues: Unremarkable. Vasculature: Atherosclerotic disease of intracranial arteries. Aneurysm clip. Sinuses: No acute sinusitis. Mastoid air cells: No mastoid effusion. Orbits: Unremarkable as visualized. IMPRESSION: 1. Nonspecific white matter changes. Acute infarction may be CT occult within first 24 hours. If a focal deficit persists, consider followup CT or MRI for further evaluation. 2. Incidental/non-acute findings are described above.
--- NOTE | 2017-08-25 22:52 | CP.PCM.HP ---
History of Present Illness - History of Present Illness History of Present Illness: chief complaint: not feeling well, back pain, and urinary incontinent and pain History present illness: 86-year-old female with history of hypertension, severe diffuse osteoporosis, osteoarthritis, history of multiple hip surgeries, multiple fractures in the past, vertebroplasty, hospitalized multiple times with a fall and fractures. Patient was not feeling well. She started having increasing abdominal pain, and suprapubic pain, difficulty in urination, pain upon urination, not feeling well. Also having chills, shaking. No vomiting nausea. Patient was not able to control the bowel movements, associated with the some discomfort. Patient was not able to eat anything, and also not able to drink. increasing pain in the back noted patient is not able to walk, also increasing symptoms of weakness more than usual. He was also havingsome difficulty in moving the left side. her speech is normal otherwis Past medical history: Severe osteoporosis, osteoarthritis, vertebral compression fracture, multiple hip fractures, pelvic fractures, hypertension, hypercholesterolemia, failure to thrive Allergy: Allergic to codeine tramadol hydromorphone Surgical history: Vertebroplasty, hip replacement Personal history: Patient is a lifelong nonsmoker nonalcoholic Family history noncontributory Review of systems: Patient is currently having also some headache, neck pain, bilateral shoulder pain associate with the pain in the mid spine, and bilateral rib cage pain, also having pain in the bilateral hips. Patient is not able to move the legs, because of the pain. There is no fall or injury is noted Currently also complaining of pain in the mouth, gingival pain noted on the right side. Unable to swallow, swallowing causes increasing pain. Patient is not able to eat well, significant weight loss noted, patient is having severely muscle mass loss noted On examination: HEENT PERRLA, neck supple, patient is a thin, fragile, as well as loss of muscle mass significantly noted, patient spine is visible obviously, with no muscle mass, resting of muscles noted no sacral decubiti No thyromegaly was noted and no cervical adenopathy noted Chest bilateral good air entry, no wheezing or rales noted CVS regular heart sound, no murmur Abdomen soft and no organomegaly Extremities no pedal edema, no leg swelling, pedal pulses are good. [employer] alert awake oriented x3 no functional neurological deficit labs Urine showing evidence of possible infarction Assessment/recommendation: 84 female, hypertension, diffuse osteoporosis, multiple vertebral fractures, admitted now with a severe worsening overall condition, patient is having significant failure to thrive, not able to eat well, Patient went home, after the discharge patient suddenly felt in the house. Patient was brought into the emergency room. With the pain over the pelvic region. possibility patient has severe urinary tract infec, associated with weakness. Urosepsis. Hypertension uncontrolled. Failure to thrive Muscle wasting Overall prognosis is guarded IV antibiotic Blood pressure control IV fluids Fall precautions spoke to patient's son Present on Admission - Present on Admission Any Indicators Present on Admission: No History of DVT/PE: No History of Uncontrolled Diabetes: No Urinary Catheter: No Decubitus Ulcer Present: No Past Patient History - Past Medical History & Family History Past Medical History?: Yes - Past Social History Smoking Status: Former Smoker - CARDIAC Hx Hypercholesterolemia: Yes Hx Hypertension: Yes - PULMONARY Hx Respiratory Disorders: No - NEUROLOGICAL Hx Transient Ischemic Attacks (TIA): Yes - HEENT Hx HEENT Problems: Yes Hx Cataracts: Yes Other/Comment: 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 poor vision on the right eye - ENDOCRINE/METABOLIC Hx Endocrine Disorders: No - HEMATOLOGICAL/ONCOLOGICAL Hx Anemia: Yes - INTEGUMENTARY Hx Eczema: No - MUSCULOSKELETAL/RHEUMATOLOGICAL Hx Arthritis: Yes Hx Fractures: Yes (hip, spine) Hx Osteoporosis: Yes - GASTROINTESTINAL Hx Gastrointestinal Disorders: Yes Hx Nausea: Yes Other/Comment: IRRITABLE BOWEL SYNDROME. EGD with Biopsy; Polypectomy 11/1997 - GENITOURINARY/GYNECOLOGICAL Hx Incontinence: Yes - PSYCHIATRIC Hx Anxiety: Yes Hx Depression: Yes Hx Substance Use: No - SURGICAL HISTORY Hx Appendectomy: Yes Hx Tonsillectomy: Yes - ANESTHESIA Hx Anesthesia: Yes Hx Anesthesia Reactions: No Hx Malignant Hyperthermia: No Meds Allergies/Adverse Reactions: Allergies Allergy/AdvReac Type Severity Reaction Status Date / Time codeine Allergy ITCHING Verified 01/30/17 00:13 hydromorphone HCl Allergy RASH Verified 01/30/17 00:13 [From Dilaudid] tramadol Allergy RASH Verified 01/30/17 00:13 Results - Vital Signs Recent Vital Signs: Last Vital Signs Temp 98.5 F 08/25/17 18:17 Pulse 91 H 08/25/17 22:05 Resp 16 08/25/17 22:05 BP 201/120 H 08/25/17 22:05 Pulse Ox 97 08/25/17 22:19 - Labs Result Diagrams: 08/25/17 20:20 08/25/17 20:20 Labs: Laboratory Results - last 24 hr 08/25/17 08/25/17 08/25/17 20:15 20:20 20:20 WBC 7.1 RBC 4.68 Hgb 12.1 Hct 36.9 MCV 78.8 L D MCH 25.8 L MCHC 32.7 L RDW 18.5 H Plt Count 431 H D MPV 7.5 Neut % (Auto) 67.7 Lymph % (Auto) 21.8 [place] % (Auto) 9.1 Eos % (Auto) 0.6 Baso % (Auto) 0.8 Neut # 4.8 Lymph # 1.5 [place] # 0.6 Eos # 0.0 Baso # 0.1 PT INR APTT Puncture Site pCO2 pO2 HCO3 ABG pH ABG Total CO2 ABG O2 Saturation ABG Base Excess ABG Hemoglobin ABG Carboxyhemoglobin POC ABG HHb (Measured) ABG Methemoglobin Vahe Test A-a O2 Difference Respiratory Index Hgb O2 Saturation Liter Flow FiO2 Sodium 129 L Potassium 3.5 L Chloride 95 L Carbon Dioxide 26 Anion Gap 11 BUN 12 Creatinine 0.4 L Est GFR ( Amer) > 60 Est GFR (Non-Af Amer) > 60 Random Glucose 94 Calcium 8.5 L Magnesium 1.8 Total Bilirubin 0.4 AST 26 ALT 33 Alkaline Phosphatase 61 Troponin I < 0.0120 NT-Pro-B Natriuret Pep 246 Total Protein 7.5 Albumin 3.9 Globulin 3.6 Albumin/Globulin Ratio 1.1 TSH 3rd Generation 1.95 Urine Color Urine Clarity Urine pH Ur Specific [place] Urine Protein Urine Glucose (UA) Urine Ketones Urine Blood Urine Nitrate Urine Bilirubin Urine Urobilinogen Ur Leukocyte Esterase Urine WBC (Auto) Urine RBC (Auto) Ur Squamous Epith Cells Ur Transition Epith Cell Urine Bacteria Hyaline Casts Influenza Typ A,B (EIA) Negative for flu a/b 08/25/17 08/25/17 08/25/17 20:20 20:20 20:56 WBC RBC Hgb Hct MCV MCH MCHC RDW Plt Count MPV Neut % (Auto) Lymph % (Auto) [place] % (Auto) Eos % (Auto) Baso % (Auto) Neut # Lymph # [place] # Eos # Baso # PT 11.2 INR 1.0 APTT 29 Puncture Site Rr pCO2 36 pO2 97 HCO3 25.8 ABG pH 7.45 ABG Total CO2 26.1 ABG O2 Saturation 99.4 H ABG Base Excess 1.2 ABG Hemoglobin 11.6 L ABG Carboxyhemoglobin 2.2 H POC ABG HHb (Measured) 0.6 ABG Methemoglobin 1.3 Vahe Test Pos A-a O2 Difference 58.0 Respiratory Index 0.6 Hgb O2 Saturation 95.9 Liter Flow 2.0 FiO2 28.0 Sodium Potassium Chloride Carbon Dioxide Anion Gap BUN Creatinine Est GFR ( Amer) Est GFR (Non-Af Amer) Random Glucose Calcium Magnesium Total Bilirubin AST ALT Alkaline Phosphatase Troponin I NT-Pro-B Natriuret Pep Total Protein Albumin Globulin Albumin/Globulin Ratio TSH 3rd Generation Urine Color Yellow Urine Clarity Clear Urine pH 6.0 Ur Specific [place] 1.009 Urine Protein Negative Urine Glucose (UA) Normal Urine Ketones Trace Urine Blood Negative Urine Nitrate Positive H Urine Bilirubin Negative Urine Urobilinogen Normal Ur Leukocyte Esterase 1+ H Urine WBC (Auto) 12 H Urine RBC (Auto) 3 Ur Squamous Epith Cells 1 Ur Transition Epith Cell 1 Urine Bacteria Few H Hyaline Casts 3-5 H Influenza Typ A,B (EIA)
--- NOTE | 2017-08-26 09:17 | RAD ---
PROCEDURE: CHEST RADIOGRAPH, 1 VIEW HISTORY: SOB COMPARISON: 01/30/2017 FINDINGS: LUNGS: Patchy opacity at right lung base. Atelectasis versus infiltrate. PLEURA: No pneumothorax or pleural fluid seen. CARDIOVASCULAR: Normal. OSSEOUS STRUCTURES: No significant abnormalities. VISUALIZED UPPER ABDOMEN: Normal. OTHER FINDINGS: None. IMPRESSION: Patchy opacity at right base. Infiltrate versus atelectasis. Otherwise unremarkable.
[2017-08-26] MEDS: Tobramycin 0.3% OPHT SOLN OU SCH ×3 (10:00→17:29)
[2017-08-26] MEDS: Pantoprazole 40 mg EC Tab PO SCH (10:45)
[2017-08-26] MEDS: Lidocaine 5% Patch TD SCH (10:45)
--- NOTE | 2017-08-26 23:13 | CARD ---
APPROVED REPORT EKG Measurement Heart [id number] <Conclusion> Normal sinus rhythm Minimal voltage criteria for LVH, may be normal variant Borderline ECG
[2017-08-27 08:46] LABS: BASO % 0.8 % (0.0-2.0); EOS # 0.3 K/uL (0.0-0.7); EOS % 5.8 % (0.0-4.0); HEMATOCRIT 32.5 % (34.0-47.0); LYMPH % 33.9 % (20.0-40.0); MEAN CELL VOLUME 79.1 fL (81.0-99.0); MEAN CORPUSCULAR HEMOGLOBIN 26.7 pg (27.0-31.0); MEAN CORPUSCULAR HGB CONC 33.7 g/dL (33.0-37.0); MEAN PLATELET VOLUME 7.7 fL (7.2-11.7); MONO # 0.8 K/uL (0.0-0.8); WHITE BLOOD COUNT 5.9 K/uL (4.8-10.8)
[2017-08-27 09:09] LABS: BLOOD UREA NITROGEN 20 mg/dL (7-17); CALCIUM 8.4 mg/dl (8.6-10.4); CARBON DIOXIDE 31 mmol/L (22-30); CHLORIDE 94 mmol/L (98-107); GFR AFRICAN-AMERICAN > 60; GLUCOSE,RANDOM 92 mg/dL (65-105); POTASSIUM 3.8 mmol/L (3.6-5.2); SODIUM 128 mmol/L (132-148)
[2017-08-27] MEDS ORDERED: Influenza Vaccine 60 mcg/0.5 mL SYR (4YR UP) IM ONE (10:00)
[2017-08-27] MEDS: Pantoprazole 40 mg EC Tab PO SCH (10:14)
[2017-08-27] MEDS: Tobramycin 0.3% OPHT SOLN OU SCH ×3 (10:27→18:05)
[2017-08-28] MEDS: Pantoprazole 40 mg EC Tab PO SCH (09:14)
[2017-08-28] MEDS: Tobramycin 0.3% OPHT SOLN OU SCH ×3 (09:15→18:02)
[2017-08-28] MEDS: Lidocaine 5% Patch TD SCH (10:28)
[2017-08-28] MEDS: Sodium Chloride 0.9% 1,000 ML IV SCH (12:23)
[2017-08-29] MEDS: Sodium Chloride 0.9% 1,000 ML IV SCH ×2 (05:12→21:50)
[2017-08-29 07:41] LABS: BASO # 0.1 K/uL (0.0-0.2); BASO % 1.4 % (0.0-2.0); EOS # 0.4 K/uL (0.0-0.7); EOS % 7.4 % (0.0-4.0); HEMATOCRIT 30.5 % (34.0-47.0); LYMPH # 1.7 K/uL (1.0-4.3); MEAN CELL VOLUME 78.8 fL (81.0-99.0); MEAN CORPUSCULAR HGB CONC 32.9 g/dL (33.0-37.0); MEAN PLATELET VOLUME 7.5 fL (7.2-11.7); MONO # 0.6 K/uL (0.0-0.8); MONO % 11.5 % (0.0-10.0); NRBC % 0.1 % (0.0-2.0); RED CELL DISTRIBUTION WIDTH 17.7 % (11.5-14.5); WHITE BLOOD COUNT 5.3 K/uL (4.8-10.8)
[2017-08-29 07:44] VITALS: RESP 20
[2017-08-29 08:50] LABS: BLOOD UREA NITROGEN 15 mg/dL (7-17); CALCIUM 7.9 mg/dl (8.6-10.4); CARBON DIOXIDE 30 mmol/L (22-30); CHLORIDE 95 mmol/L (98-107); GFR AFRICAN-AMERICAN > 60; GLUCOSE,RANDOM 85 mg/dL (65-105); POTASSIUM 3.8 mmol/L (3.6-5.2); SODIUM 125 mmol/L (132-148)
[2017-08-29] MEDS: Pantoprazole 40 mg EC Tab PO SCH (09:51)
[2017-08-29] MEDS: Lidocaine 5% Patch TD SCH (09:51)
[2017-08-29] MEDS: Tobramycin 0.3% OPHT SOLN OU SCH ×3 (09:52→18:20)
--- NOTE | 2017-08-29 15:19 | CP.PCM.PN ---
Subjective - Date & Time of Evaluation Date of Evaluation: 08/29/17 Time of Evaluation: 15:17 - Subjective Subjective: Patient is today more awake and responding. Combining her lower back pain. Pain in the left hip. Eating okay. Constipation. Blood pressure is elevated Vital signs reviewed No neck vein distention noted Chest good air entry bilaterally, no wheezing or rales noted CVS regular heart sound, no murmur noted Abdomen soft, nontender. Extremities no pedal edema [employer] alert awake oriented -3, no functional neurological deficit Assessment and recommendation: 81-year-old fragile lady admitted with severe back pain. Argument or status. Urosepsis. Currently awaiting for rehabilitation. Objective - Vital Signs/Intake and Output Vital Signs (last 24 hours): Temp Pulse Resp BP Pulse Ox 98 F 78 20 133/89 97 08/29/17 07:43 08/29/17 07:43 08/29/17 07:43 08/29/17 07:43 08/29/17 07:43 Intake and Output: 08/29/17 08/29/17 06:59 18:59 Intake Total 680 1130 Output Total 0 Balance 680 1130 - Medications Medications: Current Medications Acetaminophen (Tylenol 325mg Tab) 650 mg PO Q4 PRN PRN Reason: Fever >100.4 F Last Admin: 08/29/17 01:58 Dose: 650 mg Amlodipine Besylate (Norvasc) 10 mg PO DAILY [facility] Last Admin: 08/29/17 09:51 Dose: 10 mg Docusate Sodium (Colace) 100 mg PO DAILY [facility] Last Admin: 08/29/17 09:51 Dose: 100 mg Gabapentin (Neurontin) 100 mg PO TID [facility] Last Admin: 08/29/17 14:22 Dose: 100 mg Ceftriaxone Sodium 1 gm/ (Sodium Chloride) 100 mls @ 100 mls/hr IVPB DAILY [facility] Last Admin: 08/29/17 09:57 Dose: 100 mls/hr Sodium Chloride (Sodium Chloride 0.9%) 1,000 mls @ 60 mls/hr IV .[id number] [facility] Last Admin: 08/29/17 05:12 Dose: 60 mls/hr Ibuprofen (Motrin Tab) 400 mg PO TID PRN PRN Reason: Headache Last Admin: 08/29/17 09:54 Dose: 400 mg Lidocaine (Lidoderm) 1 ea TD DAILY [facility] Last Admin: 08/29/17 09:51 Dose: 1 ea Lorazepam (Ativan) 1 mg PO Q8 [facility] Last Admin: 08/29/17 14:26 Dose: Not Given Losartan Potassium (Cozaar) 100 mg PO DAILY [facility] Last Admin: 08/29/17 09:51 Dose: 100 mg Pantoprazole Sodium (Protonix Ec Tab) 40 mg PO DAILY [facility] Last Admin: 08/29/17 09:51 Dose: 40 mg Sennosides (Senokot Tab) 8.6 mg PO DAILY [facility] Last Admin: 08/29/17 09:51 Dose: 8.6 mg Tobramycin Sulfate (Tobrex 0.3% [facility]) 1 drop OU TID [facility] Last Admin: 08/29/17 14:23 Dose: 1 drop - Labs Labs: 08/29/17 07:15 08/29/17 07:15 PT 11.2 SECONDS (9.7-12.2) 08/25/17 20:20 INR 1.0 08/25/17 20:20 APTT 29 SECONDS (21-34) 08/25/17 20:20
[2017-08-30] MEDS: Tobramycin 0.3% OPHT SOLN OU SCH ×3 (09:03→18:28)
[2017-08-30] MEDS: Lidocaine 5% Patch TD SCH (09:04)
[2017-08-30] MEDS: Pantoprazole 40 mg EC Tab PO SCH (09:04)
[2017-08-30] MEDS: Sodium Chloride 0.9% 1,000 ML IV SCH (14:23)
[2017-08-31] MEDS: Sodium Chloride 0.9% 1,000 ML IV SCH (06:55)
[2017-08-31] MEDS: Pantoprazole 40 mg EC Tab PO SCH (09:44)
[2017-08-31] MEDS: Tobramycin 0.3% OPHT SOLN OU SCH ×2 (09:45→18:01)
[2017-08-31] MEDS: Lidocaine 5% Patch TD SCH ×2 (09:53→09:55)
--- NOTE | 2017-08-31 17:45 | CP.PCM.PN ---
Subjective - Date & Time of Evaluation Date of Evaluation: 08/30/17 Time of Evaluation: 17:45 Objective - Vital Signs/Intake and Output Vital Signs (last 24 hours): Temp Pulse Resp BP Pulse Ox 97.6 F 87 20 125/72 94 L 08/31/17 15:00 08/31/17 15:00 08/31/17 15:00 08/31/17 15:00 08/31/17 15:00 Intake and Output: 08/31/17 08/31/17 06:59 18:59 Intake Total 1330 Output Total 1050 Balance 280 - Medications Medications: Current Medications Acetaminophen (Tylenol 325mg Tab) 650 mg PO Q4 PRN PRN Reason: Fever >100.4 F Last Admin: 08/31/17 09:51 Dose: 650 mg Amlodipine Besylate (Norvasc) 10 mg PO DAILY [facility] Last Admin: 08/31/17 09:44 Dose: 10 mg Docusate Sodium (Colace) 100 mg PO DAILY [facility] Last Admin: 08/31/17 09:44 Dose: 100 mg Gabapentin (Neurontin) 100 mg PO TID [facility] Last Admin: 08/31/17 09:51 Dose: 100 mg Ceftriaxone Sodium 1 gm/ (Sodium Chloride) 100 mls @ 100 mls/hr IVPB DAILY [facility] Last Admin: 08/31/17 09:45 Dose: 100 mls/hr Ibuprofen (Motrin Tab) 400 mg PO TID PRN PRN Reason: Headache Last Admin: 08/31/17 14:32 Dose: 400 mg Lidocaine (Lidoderm) 1 ea TD DAILY [facility] Last Admin: 08/31/17 09:55 Dose: 1 ea Lorazepam (Ativan) 1 mg PO Q8 [facility] Last Admin: 08/31/17 14:32 Dose: 1 mg Losartan Potassium (Cozaar) 100 mg PO DAILY [facility] Last Admin: 08/31/17 09:44 Dose: 100 mg Pantoprazole Sodium (Protonix Ec Tab) 40 mg PO DAILY [facility] Last Admin: 08/31/17 09:44 Dose: 40 mg Sennosides (Senokot Tab) 8.6 mg PO DAILY [facility] Last Admin: 08/31/17 09:44 Dose: 8.6 mg Tobramycin Sulfate (Tobrex 0.3% Ophth Soln) 1 drop OU TID [facility] Last Admin: 08/31/17 09:45 Dose: 1 drop - Labs Labs: 08/29/17 07:15 08/29/17 07:15 PT 11.2 SECONDS (9.7-12.2) 08/25/17 20:20 INR 1.0 08/25/17 20:20 APTT 29 SECONDS (21-34) 08/25/17 20:20
--- NOTE | 2017-08-31 17:46 | CP.PCM.PN ---
Subjective - Date & Time of Evaluation Date of Evaluation: 08/31/17 Time of Evaluation: 17:45 - Subjective Subjective: pt has some pain over the left hip area no chills or fever urine no pain eating ok labs noted vitals ok chest good air entry regular hs abd soft will contnue the current treatment will f/u for rehab Objective - Vital Signs/Intake and Output Vital Signs (last 24 hours): Temp Pulse Resp BP Pulse Ox 97.6 F 87 20 125/72 94 L 08/31/17 15:00 08/31/17 15:00 08/31/17 15:00 08/31/17 15:00 08/31/17 15:00 Intake and Output: 08/31/17 08/31/17 06:59 18:59 Intake Total 1330 Output Total 1050 Balance 280 - Medications Medications: Current Medications Acetaminophen (Tylenol 325mg Tab) 650 mg PO Q4 PRN PRN Reason: Fever >100.4 F Last Admin: 08/31/17 09:51 Dose: 650 mg Amlodipine Besylate (Norvasc) 10 mg PO DAILY [facility] Last Admin: 08/31/17 09:44 Dose: 10 mg Docusate Sodium (Colace) 100 mg PO DAILY [facility] Last Admin: 08/31/17 09:44 Dose: 100 mg Gabapentin (Neurontin) 100 mg PO TID [facility] Last Admin: 08/31/17 09:51 Dose: 100 mg Ceftriaxone Sodium 1 gm/ (Sodium Chloride) 100 mls @ 100 mls/hr IVPB DAILY [facility] Last Admin: 08/31/17 09:45 Dose: 100 mls/hr Ibuprofen (Motrin Tab) 400 mg PO TID PRN PRN Reason: Headache Last Admin: 08/31/17 14:32 Dose: 400 mg Lidocaine (Lidoderm) 1 ea TD DAILY [facility] Last Admin: 08/31/17 09:55 Dose: 1 ea Lorazepam (Ativan) 1 mg PO Q8 [facility] Last Admin: 08/31/17 14:32 Dose: 1 mg Losartan Potassium (Cozaar) 100 mg PO DAILY [facility] Last Admin: 08/31/17 09:44 Dose: 100 mg Pantoprazole Sodium (Protonix Ec Tab) 40 mg PO DAILY [facility] Last Admin: 08/31/17 09:44 Dose: 40 mg Sennosides (Senokot Tab) 8.6 mg PO DAILY [facility] Last Admin: 08/31/17 09:44 Dose: 8.6 mg Tobramycin Sulfate (Tobrex 0.3% Oph Soln) 1 drop OU TID [facility] Last Admin: 08/31/17 09:45 Dose: 1 drop - Labs Labs: 08/29/17 07:15 08/29/17 07:15 PT 11.2 SECONDS (9.7-12.2) 08/25/17 20:20 INR 1.0 08/25/17 20:20 APTT 29 SECONDS (21-34) 08/25/17 20:20
[2017-09-01] MEDS: Lidocaine 5% Patch TD SCH (09:27)
[2017-09-01] MEDS: Pantoprazole 40 mg EC Tab PO SCH (09:29)
[2017-09-01] MEDS: Tobramycin 0.3% OPHT SOLN OU SCH ×4 (09:31→17:36)
[2017-09-01 11:28] LABS: BASO # 0.1 K/uL (0.0-0.2); BASO % 1.3 % (0.0-2.0); EOS # 0.3 K/uL (0.0-0.7); EOS % 5.2 % (0.0-4.0); HEMATOCRIT 34.9 % (34.0-47.0); LYMPH # 1.7 K/uL (1.0-4.3); LYMPH % 34.2 % (20.0-40.0); MEAN CELL VOLUME 79.3 fL (81.0-99.0); MEAN CORPUSCULAR HEMOGLOBIN 25.7 pg (27.0-31.0); MEAN CORPUSCULAR HGB CONC 32.4 g/dL (33.0-37.0); MEAN PLATELET VOLUME 7.7 fL (7.2-11.7); MONO # 0.7 K/uL (0.0-0.8); MONO % 14.6 % (0.0-10.0); RED CELL DISTRIBUTION WIDTH 18.1 % (11.5-14.5); WHITE BLOOD COUNT 4.9 K/uL (4.8-10.8)
[2017-09-01 11:46] LABS: BLOOD UREA NITROGEN 17 mg/dL (7-17); CALCIUM 8.1 mg/dl (8.6-10.4); CARBON DIOXIDE 29 mmol/L (22-30); CHLORIDE 93 mmol/L (98-107); GFR AFRICAN-AMERICAN > 60; GLUCOSE,RANDOM 88 mg/dL (65-105); POTASSIUM 3.5 mmol/L (3.6-5.2); SODIUM 127 mmol/L (132-148)
[2017-09-01] MEDS ORDERED: Potassium Chloride 20 mEq/15 ml LIQ UD PO ONE (11:49)
[2017-09-01] MEDS ORDERED: Potassium Chloride 20 mEq ER Tab PO ONE (14:45)
[2017-09-01 15:57] VITALS: BP 135/80; PULSE 98; TEMP 98.3; O2SAT 95
--- NOTE | 2017-09-01 17:13 | CP.PCM.PN ---
Subjective - Date & Time of Evaluation Date of Evaluation: 09/01/17 Time of Evaluation: 11:00 - Subjective Subjective: Awake, alert, denies sob or chest pains. Objective - Vital Signs/Intake and Output Vital Signs (last 24 hours): Temp Pulse Resp BP Pulse Ox 98.3 F 98 H 20 135/80 95 09/01/17 15:00 09/01/17 15:00 09/01/17 15:00 09/01/17 15:00 09/01/17 15:00 Intake and Output: 09/01/17 09/01/17 06:59 18:59 Intake Total 120 Output Total 450 Balance -330 - Medications Medications: Current Medications Acetaminophen (Tylenol 325mg Tab) 650 mg PO Q4 PRN PRN Reason: Fever >100.4 F Last Admin: 09/01/17 02:45 Dose: 650 mg Amlodipine Besylate (Norvasc) 10 mg PO DAILY [facility] Last Admin: 09/01/17 09:29 Dose: 10 mg Docusate Sodium (Colace) 100 mg PO DAILY [facility] Last Admin: 09/01/17 09:28 Dose: 100 mg Gabapentin (Neurontin) 100 mg PO TID [facility] Last Admin: 09/01/17 14:39 Dose: 100 mg Ceftriaxone Sodium 1 gm/ (Sodium Chloride) 100 mls @ 100 mls/hr IVPB DAILY [facility] Last Admin: 09/01/17 09:34 Dose: 100 mls/hr Ibuprofen (Motrin Tab) 400 mg PO TID PRN PRN Reason: Headache Last Admin: 09/01/17 09:29 Dose: 400 mg Lidocaine (Lidoderm) 1 ea TD DAILY [facility] Last Admin: 09/01/17 09:27 Dose: 1 ea Lorazepam (Ativan) 1 mg PO Q8 [facility] Last Admin: 09/01/17 14:00 Dose: 1 mg Losartan Potassium (Cozaar) 100 mg PO DAILY [facility] Last Admin: 09/01/17 09:28 Dose: 100 mg Pantoprazole Sodium (Protonix Ec Tab) 40 mg PO DAILY [facility] Last Admin: 09/01/17 09:29 Dose: 40 mg Sennosides (Senokot Tab) 8.6 mg PO DAILY [facility] Last Admin: 09/01/17 09:28 Dose: 8.6 mg Tobramycin Sulfate (Tobrex 0.3% Oph Soln) 1 drop OU TID [facility] Last Admin: 09/01/17 14:36 Dose: 1 drop - Labs Labs: 09/01/17 11:19 09/01/17 11:19 PT 11.2 SECONDS (9.7-12.2) 08/25/17 20:20 INR 1.0 08/25/17 20:20 APTT 29 SECONDS (21-34) 08/25/17 20:20 Assessment and Plan - Assessment and Plan (Free Text) Assessment: Patient is seen and examined, awake, alert, no sob or chest pains. No wheezing , no distress. Discussed with DR Goyal, [place] [facility] Patient and her son is explained by the psychiatric social worker supervisor regarding the move, both agreed with the plan.Will continue with PT/OT as tolerated. IV antibiotics completed for 7 days for UTI with sepsis.
== END 2017-09-01 18:30 | DRG 872 ==
LOC: C.ER 17:57 → C.9E 21:04 → C.3T 21:04
PROVIDERS: ADMIT Internal Medicine; ATTEND Internal Medicine
DX: A41.9 Sepsis, unspecified organism (principal); N39.0 Urinary tract infection, site not specified; H49.00 Third [oculomotor] nerve palsy, unspecified eye; E78.00 Pure hypercholesterolemia, unspecified; R62.7 Adult failure to thrive; H54.7 Unspecified visual loss; I10 Essential (primary) hypertension; K58.9 Irritable bowel syndrome, unspecified; M62.50 Muscle wasting and atrophy, not elsewhere classified, unspecified site; M81.0 Age-related osteoporosis without current pathological fracture; Z87.891 Personal history of nicotine dependence; Z86.73 Personal history of transient ischemic attack (TIA), and cerebral infarction without residual deficits; Z90.49 Acquired absence of other specified parts of digestive tract; Z96.642 Presence of left artificial hip joint